=== PATIENT | female | born 1930 | race Caucasian/White ===

== ENCOUNTER 2016-08-09 18:06 | Inpatient (IN) ==
--- NOTE | 2016-08-09 18:16 | Emergency Department Note ---
Disposition Clinical Impression: C. difficile colitis, Frail elderly, Dehydration, Renal insufficiency, Altered mental status, Pleural effusion, Cardiomegaly, CHF (congestive heart failure), Anemia, Hypokalemia, Cerebrovascular disease, Hypotension, History of pneumonia , S/P PICC central line placement, Intra-abdominal fluid collection, Intra- abdominal abscess, Sepsis Disposition: Admitted As Inpatient General Adult HPI - General Chief complaint: ED Fever Stated complaint: FEVER, AMS - History of Present Illness HPI Narrative: 86-year-old female comes in from the custodial, there is concern for infection and altered mental status. The patient had a PICC line placed about a month ago, per reports she had been treated with antibiotics for pneumonia. Subsequently she developed some diarrhea and was recently diagnosed with Clostridium difficile colitis at the custodial. There is no history of trauma or fall. The patient is been taking vancomycin by mouth but is becoming more lethargic and less responsive. She was sent to the ED for further evaluation secondary to declining clinical status. The patient has no acute complaints, she is somewhat confused and does not articulate any concerns. The patient's daughter and power of staff attorney is here with her. There is no history of headache neck stiffness convulsions or rash. Definitively no falls or injuries apart from some potential bruising around the knee secondary to being lifted to the bedside commode. There is no history of bloody stool. No chest pain or shortness of breath are described. The patient is currently not anticoagulated. There is no history of bleeding. No history of weakness on one side of the body facial droop or slurred speech. The patient is usually conversant per the patient's daughter, she states the patient is no longer conversant and appears to be weaker and is concerned about potential sepsis. - Related Data Allergies Allergy/AdvReac Type Severity Reaction Status Date / Time acetaminophen [From Percocet] Allergy See Verified 08/09/16 18:31 Comments adhesive tape Allergy See Verified 08/09/16 18:31 Comments cephalexin [From Keflex] Allergy See Verified 08/09/16 18:31 Comments lisinopril Allergy Redness of Verified 08/09/16 18:31 Skin Oxycodone [From Percocet] Allergy See Verified 08/09/16 18:31 Comments Penicillins Allergy See Verified 08/09/16 18:31 Comments Limitations: ROS unobtainable due to patients medical condition Physical Exam - General Limitations: altered mental status General appearance: alert, other (Elderly female lying supine, she appears to be ill. She does not appear to be in respiratory distress. She is arousable and somewhat alert but not communicative.) - Head Head exam: atraumatic, normocephalic, normal inspection - Eye Eye exam: Present: normal appearance, PERRL, EOMI. Absent: conjunctival injection, miosis, mydriasis, periorbital swelling - ENT ENT exam: normal exam, normal oropharynx, TM's normal bilaterally, normal external ear exam - Neck Neck exam: Present: normal inspection, full ROM, trachea midline. Absent: meningismus - Chest Chest inspection: Present: symmetric chest wall rise. Absent: tenderness - Respiratory Respiratory exam: Present: prolonged expiratory phase. Absent: respiratory distress, wheezes, stridor, accessory muscle use - Cardiovascular Cardiovascular exam: Present: regular rate, normal rhythm, normal heart sounds - Abdominal Exam Abdominal exam: Present: soft, tenderness, normal bowel sounds. Absent: distention, guarding, rebound, rigidity, trauma, pulsatile mass Abdominal tenderness: Present: diffuse, mild - Extremities Exam Extremities exam: Present: normal inspection, full ROM, normal capillary refill. Absent: tenderness, pedal edema, joint swelling, calf tenderness - Expanded Lower Extremity Exam Hip/Pelvis exam: Present: normal inspection, full ROM Upper leg exam: Present: normal inspection, full ROM Knee exam: Present: normal inspection, full ROM Lower leg exam: Present: normal inspection, full ROM Ankle exam: Present: normal inspection, full ROM Foot/toe exam: Present: normal inspection, full ROM Neurovascular/Tendon exam: Present: normal capillary refill. Absent: motor deficit, sensory deficit, tendon deficit, extremity cold to touch, pallor - Back Exam Back exam: Present: normal inspection, full ROM. Absent: tenderness, CVA tenderness (R), CVA tenderness (L), vertebral tenderness - Neurological Exam Neurological exam: Present: alert, CN II-XII intact, other (Good muscle tone in all 4 extremities some cogwheel type rigidity in the upper extremities however. No flaccidity or evidence of unilateral weakness no overt facial droop or cranial nerve defect is appreciated.). Absent: oriented X3 - Skin Skin exam: Present: warm, dry, intact, normal color. Absent: rash, cyanosis, diaphoresis, erythema, pallor, mottled Course Vital Signs Temperature 100.2 F H 08/09/16 18:16 Pulse Rate 62 08/09/16 18:16 Respiratory Rate 20 08/09/16 18:16 Blood Pressure 131/119 08/09/16 18:16 O2 Sat by Pulse Oximetry 97 08/09/16 18:16 Temperature 100.2 F H 08/09/16 18:16 Pulse Rate 59 08/09/16 21:49 Respiratory Rate 18 08/09/16 21:49 Blood Pressure 119/57 08/09/16 21:49 O2 Sat by Pulse Oximetry 97 08/09/16 18:16 Oxygen Delivery Oxygen Delivery Nasal Cannula Medical Decision Making - MDM Narrative Medical decision making narrative: The patient is elderly, with multiple medical problems, she has a diagnosis of Clostridium difficile colitis and is taking vancomycin by mouth. Per report the custodial staff noticed the patient's decreased mentation and thought the patient would best be served sending the patient to the ED for ED evaluation. The patient is unable to give a clear history but the patient's daughter in [place] gives a great deal of pertinent history. The patient appears to be somewhat hypotensive and dehydrated. Her chest x-ray shows cardiomegaly and pleural effusions. She has a PICC line in place. Urinalysis does not show major abnormalities. Blood cultures were sent. Precautionary vancomycin and Levaquin and Flagyl were ordered. The patient's lactic acid is negative. She has been having recurrent diarrhea consistent with her diagnosis of C. difficile. CT head shows no acute disease. EKG paced rhythm. Troponin negative. Market elevation in the patient's CRP noted. Based on the patient's hypotension, altered mental status, apparent dehydration, frail elderly state with multiple comorbidities and apparent failed outpatient therapy on vancomycin by mouth, I thought it would be appropriate to admit the patient to the hospital. A CT of the abdomen and pelvis have been ordered to evaluate further. I discussed the case with the hospitalist on-call who has accepted the patient to their care. CT scan abdomen did come back showing a fluid collection in the abdomen, possible abscess, I discussed the case with Dr. Leyva/surgery who will act as exchange underwriting consultant. - Lab Data Lab results reviewed: Yes I reviewed the patient's lab results. Result diagrams: 08/09/16 18:53 06/24/17 18:53 Lab Results 08/09/16 08/09/16 08/09/16 Range/Units 18:19 18:52 18:53 WBC 4.8 (4.3-11.1) K/mcL RBC 3.55 L (3.82-4.97) M/mcL Hgb 11.1 L (11.5-15.4) g/dL Hct 35.5 (35.3-44.9) % MCV 100.0 (83.0-100.0) fL MCH 31.3 (28.0-33.3) pg MCHC 31.3 L (31.6-35.5) g/dL RDW 13.2 (11.5-14.5) % Plt Count 109 L (140-400) K/mcL MPV 9.9 (9.4-12.4) fL Seg Neutrophils % 58.0 % Band Neutrophils % 14.0 H (0-4) % Lymphocytes % 20.0 % Monocytes % 6.0 % Eosinophils % 2.0 % Neutrophils # 3.5 (1.6-8.9) K/mcL Lymphocytes # 1.0 (0.6-4.6) K/mcL Monocytes # 0.3 (0.0-1.3) K/mcL Eosinophils # 0.1 (0.0-0.6) K/mcL Platelet Estimate Decreased L (Normal) PT (9.4-12.1) Seconds INR APTT (26.0-36.0) Seconds Sodium (136-145) mEq/L Potassium (3.5-4.5) mEq/L Chloride (98-109) mEq/L Carbon Dioxide (19-29) mEq/L BUN (7-20) mg/dL Creatinine (0.57-1.11) mg/dL Est GFR ( Amer) (> 60) Est GFR (Non-Af Amer) (> 60) BUN/Creatinine Ratio (6-26) Glucose (70-99) mg/dL Calculated Osmolality (280-300) Lactic Acid (0.5-2.2) mmol/L Calcium (8.6-10.8) mg/dL Phosphorus (2.3-4.7) mg/dL Magnesium (1.6-2.6) mg/dL Total Bilirubin (0.2-1.2) mg/dL Direct Bilirubin (0.0-0.5) mg/dL Indirect Bilirubin (0.0-1.2) mg/dL AST (5-34) Units/L ALT (0-55) Units/L Alkaline Phosphatase (38-126) Units/L Ammonia (18-72) mcmol/L Troponin I (0-0.03) ng/mL C-Reactive Protein (Less than 5) mg/L B-Natriuretic Peptide 170 H (0-100) pg/mL Serum Total Protein (6.0-8.3) g/dL Albumin (3.5-5.0) g/dL Globulin (2.4-3.5) g/dL Albumin/Globulin Ratio (1.1-2.2) Lipase (8-78) Units/L Urine Color (Yellow) Urine Clarity (Clear) Urine pH (5.0-8.0) pH Units Ur Specific [place] (1.010-1.025) Urine Protein (Neg-Trace) mg/dL Urine Glucose (UA) (Normal) mg/dL Urine Ketones (Negative) mg/dL Urine Blood (Negative) Urine Nitrite (Negative) Urine Bilirubin (Negative) Urine Urobilinogen (Normal) mg/dL Ur Leukocyte Esterase (Negative) Urine Microscopic RBC Urine Microscopic WBC (0-3) per hpf Ur Squamous Epith Cells (None-Few) per lpf Urine Bacteria (None-Few) per hpf Hyaline Casts (None-Few) per lpf Urine Yeast Ur Culture Indicated? (NO) Salicylates (15-30) mg/dL Urine Opiates Screen Negative (Ooxbrw=277) ng/mL Acetaminophen (10-30) mcg/mL Ur Barbiturates Screen Negative (Hsvqze=391) ng/mL Ur Phencyclidine Scrn Negative (Cutoff=25) ng/mL Ur Amphetamines Screen Negative (Zlzkjh=1438) ng/mL U Benzodiazepines Scrn Negative (Ukwqza=944) ng/mL Urine Cocaine Screen Negative (Cutoff= 300) ng/mL U Marijuana (THC) Screen Negative (Cutoff = 50) ng/mL 08/09/16 08/09/16 08/09/16 Range/Units 18:53 18:53 18:53 WBC (4.3-11.1) K/mcL RBC (3.82-4.97) M/mcL Hgb (11.5-15.4) g/dL Hct (35.3-44.9) % MCV (83.0-100.0) fL MCH (28.0-33.3) pg MCHC (31.6-35.5) g/dL RDW (11.5-14.5) % Plt Count (140-400) K/mcL MPV (9.4-12.4) fL Seg Neutrophils % % Band Neutrophils % (0-4) % Lymphocytes % % Monocytes % % Eosinophils % % Neutrophils # (1.6-8.9) K/mcL Lymphocytes # (0.6-4.6) K/mcL Monocytes # (0.0-1.3) K/mcL Eosinophils # (0.0-0.6) K/mcL Platelet Estimate (Normal) PT 12.8 H (9.4-12.1) Seconds INR 1.2 APTT 25.5 L (26.0-36.0) Seconds Sodium 145 (136-145) mEq/L Potassium 3.4 L (3.5-4.5) mEq/L Chloride 111 H (98-109) mEq/L Carbon Dioxide 25 (19-29) mEq/L BUN 40 H (7-20) mg/dL Creatinine 1.15 H (0.57-1.11) mg/dL Est GFR ( Amer) 54 L (> 60) Est GFR (Non-Af Amer) 45 L (> 60) BUN/Creatinine Ratio 35 H (6-26) Glucose 143 H (70-99) mg/dL Calculated Osmolality 312 H (280-300) Lactic Acid 1.1 (0.5-2.2) mmol/L Calcium 9.5 (8.6-10.8) mg/dL Phosphorus 2.7 (2.3-4.7) mg/dL Magnesium 1.8 (1.6-2.6) mg/dL Total Bilirubin 0.6 (0.2-1.2) mg/dL Direct Bilirubin 0.3 (0.0-0.5) mg/dL Indirect Bilirubin 0.3 (0.0-1.2) mg/dL AST 15 (5-34) Units/L ALT 9 (0-55) Units/L Alkaline Phosphatase 92 (38-126) Units/L Ammonia (18-72) mcmol/L Troponin I (0-0.03) ng/mL C-Reactive Protein (Less than 5) mg/L B-Natriuretic Peptide (0-100) pg/mL Serum Total Protein 6.8 (6.0-8.3) g/dL Albumin 3.2 L (3.5-5.0) g/dL Globulin 3.6 H (2.4-3.5) g/dL Albumin/Globulin Ratio 0.9 L (1.1-2.2) Lipase 12 (8-78) Units/L Urine Color (Yellow) Urine Clarity (Clear) Urine pH (5.0-8.0) pH Units Ur Specific [place] (1.010-1.025) Urine Protein (Neg-Trace) mg/dL Urine Glucose (UA) (Normal) mg/dL Urine Ketones (Negative) mg/dL Urine Blood (Negative) Urine Nitrite (Negative) Urine Bilirubin (Negative) Urine Urobilinogen (Normal) mg/dL Ur Leukocyte Esterase (Negative) Urine Microscopic RBC Urine Microscopic WBC (0-3) per hpf Ur Squamous Epith Cells (None-Few) per lpf Urine Bacteria (None-Few) per hpf Hyaline Casts (None-Few) per lpf Urine Yeast Ur Culture Indicated? (NO) Salicylates < 5.0 L (15-30) mg/dL Urine Opiates Screen (Ozhxoc=282) ng/mL Acetaminophen < 1.0 L (10-30) mcg/mL Ur Barbiturates Screen (Gllfhy=825) ng/mL Ur Phencyclidine Scrn (Cutoff=25) ng/mL Ur Amphetamines Screen (Pibfjw=1183) ng/mL U Benzodiazepines Scrn (Vrvhet=429) ng/mL Urine Cocaine Screen (Cutoff= 300) ng/mL U Marijuana (THC) Screen (Cutoff = 50) ng/mL 08/09/16 08/09/16 08/09/16 Range/Units 18:53 18:53 18:53 WBC (4.3-11.1) K/mcL RBC (3.82-4.97) M/mcL Hgb (11.5-15.4) g/dL Hct (35.3-44.9) % MCV (83.0-100.0) fL MCH (28.0-33.3) pg MCHC (31.6-35.5) g/dL RDW (11.5-14.5) % Plt Count (140-400) K/mcL MPV (9.4-12.4) fL Seg Neutrophils % % Band Neutrophils % (0-4) % Lymphocytes % % Monocytes % % Eosinophils % % Neutrophils # (1.6-8.9) K/mcL Lymphocytes # (0.6-4.6) K/mcL Monocytes # (0.0-1.3) K/mcL Eosinophils # (0.0-0.6) K/mcL Platelet Estimate (Normal) PT (9.4-12.1) Seconds INR APTT (26.0-36.0) Seconds Sodium (136-145) mEq/L Potassium (3.5-4.5) mEq/L Chloride (98-109) mEq/L Carbon Dioxide (19-29) mEq/L BUN (7-20) mg/dL Creatinine (0.57-1.11) mg/dL Est GFR ( Amer) (> 60) Est GFR (Non-Af Amer) (> 60) BUN/Creatinine Ratio (6-26) Glucose (70-99) mg/dL Calculated Osmolality (280-300) Lactic Acid (0.5-2.2) mmol/L Calcium (8.6-10.8) mg/dL Phosphorus (2.3-4.7) mg/dL Magnesium (1.6-2.6) mg/dL Total Bilirubin (0.2-1.2) mg/dL Direct Bilirubin (0.0-0.5) mg/dL Indirect Bilirubin (0.0-1.2) mg/dL AST (5-34) Units/L ALT (0-55) Units/L Alkaline Phosphatase (38-126) Units/L Ammonia 38 (18-72) mcmol/L Troponin I 0.02 (0-0.03) ng/mL C-Reactive Protein 147 H (Less than 5) mg/L B-Natriuretic Peptide (0-100) pg/mL Serum Total Protein (6.0-8.3) g/dL Albumin (3.5-5.0) g/dL Globulin (2.4-3.5) g/dL Albumin/Globulin Ratio (1.1-2.2) Lipase (8-78) Units/L Urine Color (Yellow) Urine Clarity (Clear) Urine pH (5.0-8.0) pH Units Ur Specific [place] (1.010-1.025) Urine Protein (Neg-Trace) mg/dL Urine Glucose (UA) (Normal) mg/dL Urine Ketones (Negative) mg/dL Urine Blood (Negative) Urine Nitrite (Negative) Urine Bilirubin (Negative) Urine Urobilinogen (Normal) mg/dL Ur Leukocyte Esterase (Negative) Urine Microscopic RBC Urine Microscopic WBC (0-3) per hpf Ur Squamous Epith Cells (None-Few) per lpf Urine Bacteria (None-Few) per hpf Hyaline Casts (None-Few) per lpf Urine Yeast Ur Culture Indicated? (NO) Salicylates (15-30) mg/dL Urine Opiates Screen (Pdwqer=396) ng/mL Acetaminophen (10-30) mcg/mL Ur Barbiturates Screen (Gaurmo=923) ng/mL Ur Phencyclidine Scrn (Cutoff=25) ng/mL Ur Amphetamines Screen (Ebdmzc=3039) ng/mL U Benzodiazepines Scrn (Smyiko=646) ng/mL Urine Cocaine Screen (Cutoff= 300) ng/mL U Marijuana (THC) Screen (Cutoff = 50) ng/mL 08/09/16 Range/Units 19:35 WBC (4.3-11.1) K/mcL RBC (3.82-4.97) M/mcL Hgb (11.5-15.4) g/dL Hct (35.3-44.9) % MCV (83.0-100.0) fL MCH (28.0-33.3) pg MCHC (31.6-35.5) g/dL RDW (11.5-14.5) % Plt Count (140-400) K/mcL MPV (9.4-12.4) fL Seg Neutrophils % % Band Neutrophils % (0-4) % Lymphocytes % % Monocytes % % Eosinophils % % Neutrophils # (1.6-8.9) K/mcL Lymphocytes # (0.6-4.6) K/mcL Monocytes # (0.0-1.3) K/mcL Eosinophils # (0.0-0.6) K/mcL Platelet Estimate (Normal) PT (9.4-12.1) Seconds INR APTT (26.0-36.0) Seconds Sodium (136-145) mEq/L Potassium (3.5-4.5) mEq/L Chloride (98-109) mEq/L Carbon Dioxide (19-29) mEq/L BUN (7-20) mg/dL Creatinine (0.57-1.11) mg/dL Est GFR ( Amer) (> 60) Est GFR (Non-Af Amer) (> 60) BUN/Creatinine Ratio (6-26) Glucose (70-99) mg/dL Calculated Osmolality (280-300) Lactic Acid (0.5-2.2) mmol/L Calcium (8.6-10.8) mg/dL Phosphorus (2.3-4.7) mg/dL Magnesium (1.6-2.6) mg/dL Total Bilirubin (0.2-1.2) mg/dL Direct Bilirubin (0.0-0.5) mg/dL Indirect Bilirubin (0.0-1.2) mg/dL AST (5-34) Units/L ALT (0-55) Units/L Alkaline Phosphatase (38-126) Units/L Ammonia (18-72) mcmol/L Troponin I (0-0.03) ng/mL C-Reactive Protein (Less than 5) mg/L B-Natriuretic Peptide (0-100) pg/mL Serum Total Protein (6.0-8.3) g/dL Albumin (3.5-5.0) g/dL Globulin (2.4-3.5) g/dL Albumin/Globulin Ratio (1.1-2.2) Lipase (8-78) Units/L Urine Color Yellow (Yellow) Urine Clarity Clear (Clear) Urine pH 5.5 (5.0-8.0) pH Units Ur Specific [place] 1.024 (1.010-1.025) Urine Protein Trace (Neg-Trace) mg/dL Urine Glucose (UA) Normal (Normal) mg/dL Urine Ketones Negative (Negative) mg/dL Urine Blood Negative (Negative) Urine Nitrite Negative (Negative) Urine Bilirubin Small H (Negative) Urine Urobilinogen Normal (Normal) mg/dL Ur Leukocyte Esterase Small H (Negative) Urine Microscopic RBC Test Not Performed Urine Microscopic WBC 0-3 (0-3) per hpf Ur Squamous Epith Cells Many H (None-Few) per lpf Urine Bacteria None Seen (None-Few) per hpf Hyaline Casts None Seen (None-Few) per lpf Urine Yeast Test Not Performed Ur Culture Indicated? YES A (NO) Salicylates (15-30) mg/dL Urine Opiates Screen (Zbwkll=097) ng/mL Acetaminophen (10-30) mcg/mL Ur Barbiturates Screen (Gdkvjw=987) ng/mL Ur Phencyclidine Scrn (Cutoff=25) ng/mL Ur Amphetamines Screen (Toffmc=3703) ng/mL U Benzodiazepines Scrn (Uvrxgs=255) ng/mL Urine Cocaine Screen (Cutoff= 300) ng/mL U Marijuana (THC) Screen (Cutoff = 50) ng/mL - Radiology Data Radiology results reviewed: Yes I reviewed the patient's radiology results.
[2016-08-09] MEDS ORDERED: 0.9 % Sodium Chloride 1,000 ML IVC ONE (18:18)
[2016-08-09 19:05] LABS: Eosinophils # 0.1 K/mcL (0.0-0.6); Hematocrit 35.5 % (35.3-44.9); Hemoglobin 11.1 g/dL (11.5-15.4); Mean Corpuscular HGB Conc 31.3 g/dL (31.6-35.5); Mean Corpuscular Hemoglobin 31.3 pg (28.0-33.3); Mean Platelet Volume 9.9 fL (9.4-12.4); Platelet Count 109 K/mcL (140-400); Red Blood Count 3.55 M/mcL (3.82-4.97); Red Cell Distribution Width 13.2 % (11.5-14.5)
[2016-08-09 19:11] LABS: INR 1.2; Prothrombin Time 12.8 Seconds (9.4-12.1)
[2016-08-09 19:13] LABS: Activated Partial Thrombo Time 25.5 Seconds (26.0-36.0)
[2016-08-09 19:21] LABS: Alanine Aminotransferase 9 Units/L (0-55); Albumin 3.2 g/dL (3.5-5.0); Albumin/Globulin Ratio 0.9 (1.1-2.2); Alkaline Phosphatase 92 Units/L (38-126); Aspartate Amino Transferase 15 Units/L (5-34); BUN/Creatinine Ratio 35 (6-26); Bilirubin,Direct 0.3 mg/dL (0.0-0.5); Bilirubin,Indirect 0.3 mg/dL (0.0-1.2); Bilirubin,Total 0.6 mg/dL (0.2-1.2); Blood Urea Nitrogen 40 mg/dL (7-20); Calcium 9.5 mg/dL (8.6-10.8); Carbon Dioxide 25 mEq/L (19-29); Chloride 111 mEq/L (98-109); Globulin 3.6 g/dL (2.4-3.5); Glucose 143 mg/dL (70-99); Lipase 12 Units/L (8-78); Magnesium 1.8 mg/dL (1.6-2.6); Osmolality,Calculated 312 (280-300); Phosphorous 2.7 mg/dL (2.3-4.7); Potassium 3.4 mEq/L (3.5-4.5); Sodium 145 mEq/L (136-145); Total Protein 6.8 g/dL (6.0-8.3); eGFR For African Americans 54 (> 60); eGFR For Non-African Americans 45 (> 60)
[2016-08-09 19:23] LABS: Acetaminophen < 1.0 mcg/mL (10-30); Salicylate < 5.0 mg/dL (15-30)
[2016-08-09 19:31] LABS: Monocytes # 0.3 K/mcL (0.0-1.3); Neutrophils # 3.5 K/mcL (1.6-8.9)
[2016-08-09 19:32] LABS: Platelet Estimate Decreased (Normal)
[2016-08-09 19:44] LABS: Bilirubin,Urine Small (Negative); Blood,Urine Negative (Negative); Clarity,Urine Clear (Clear); Color,Urine Yellow (Yellow); Glucose,Urine (UA) Normal (Normal); Ketones,Urine Negative (Negative); Leukocyte Esterase,Urine Small (Negative); Nitrite,Urine Negative (Negative); PH,Urine 5.5 pH Units (5.0-8.0); Protein,Urine Trace mg/dL (Neg-Trace); Specific Gravity,Urine 1.024 (1.010-1.025); Urobilinogen,Urine Normal (Normal)
[2016-08-09 19:46] LABS: Bacteria,Urine None Seen per hpf (None-Few); Hyaline Casts,Urine None Seen per lpf (None-Few); Squamous Epithelial Cell,Urine Many per lpf (None-Few); WBC,Urine 0-3 per hpf (0-3)
[2016-08-09 19:50] LABS: Amphetamine Screen,Urine Negative ng/mL (Cutoff=1000); Barbiturate Screen,Urine Negative ng/mL (Cutoff=200); Benzodiazepines Screen,Urine Negative ng/mL (Cutoff=200); Cannabinoid Screen,Urine Negative ng/mL (Cutoff = 50); Cocaine Screen,Urine Negative ng/mL (Cutoff= 300); Opiate Screen,Urine Negative ng/mL (Cutoff=300); Phencyclidine Screen,Urine Negative ng/mL (Cutoff=25)
[2016-08-09] MEDS ORDERED: Vancomycin 1,000 MG in D5% in Water 250 ML IVPB ONE (20:14)
[2016-08-09] MEDS ORDERED: Levofloxacin 750 MG/150 ML 750 MG/150 ML BAG IVPB ONE (20:15)
[2016-08-09] MEDS ORDERED: MetroNIDAZOLE 500 MG/100 ML 500 MG/100 ML BAG IVPB ONE (20:16)
[2016-08-09] MEDS ORDERED: Ondansetron 4 MG/2 ML VIAL IVP PRN (22:36)
[2016-08-09] MEDS ORDERED: Naloxone 0.4 MG/ML INJ IVP PRN (22:36)
[2016-08-09] MEDS ORDERED: Acetaminophen 325 MG TABLET PO PRN (22:36)
--- NOTE | 2016-08-09 22:36 | Internal Med History&Physical ---
Date of Encounter: 08/10/16 Time of Encounter: 22:50 Assessment and Plan (1) Sepsis Current visit: Yes Status: Acute Sepsis with acute encephalopathy possibly secondary to C. difficile colitis and due to intra-abdominal fluid collection possibly abscess Temperature of 100.2 and elevated CRP Other possible source of sepsis could be PICC line Continue IV Levaquin, IV Flagyl and by mouth vancomycin and IV fluids Chest x-ray shows cardiomegaly and bilateral pleural effusion Cultures pending Qualifiers: Sepsis type: sepsis due to unspecified organism Qualified Code(s): A41.9 - Sepsis, unspecified organism (2) Intra-abdominal fluid collection Current visit: Yes Status: Acute New finding of intra-abdominal fluid collection in the left anterior pelvis on CT of the abdomen - unclear etiology, suspicion for abscess Continue IV antibiotics Gen. surgery consult (3) Altered mental status Current visit: Yes Status: Acute Altered mental status likely due to sepsis - associated with generalized weakness and poor physical conditioning Patient also probably has underlying mild dementia Continue IV fluids and IV antibiotics CT of the head - multifocal small vessel ischemic changes but no acute infarct or mass or hemorrhage CXR - cardiomegaly and mild pulmonary congestion and small bilateral pleural effusion otherwise no acute process Qualifiers: Altered mental status type: transient alteration of awareness Qualified Code(s): R40.4 - Transient alteration of awareness (4) C. difficile colitis Current visit: Yes Status: Acute Acute C. difficile colitis with diarrhea Continue by mouth vancomycin and IV Flagyl (5) CHF (congestive heart failure) Current visit: Yes Status: Chronic History of CHF and nonischemic cardiomyopathy, LVEF unknown, not in exacerbation Strict I's and O's and daily weight Echo pending Watch for fluid overload Qualifiers: Congestive heart failure type: unspecified congestive heart failure type Congestive heart failure chronicity: chronic Qualified Code(s): I50.9 - Heart failure, unspecified (6) Frail elderly Current visit: Yes Status: Chronic (7) S/P PICC central line placement Current visit: Yes Status: Acute History of recurrent pneumonia, has been treated with several courses of antibiotics via PICC line PICC line has been in for almost 2-1/2 months - we will probably need to come out, possible source of infection (8) DVT prophylaxis Current visit: Yes Status: Acute Continue heparin subcutaneous Internal Medicine - H&P: HPI Chief complaint: AMS Admitted From: Emergency Dept History of present illness: Ms. Stone is a 86 year old female with past medical history of CHF, nonischemic cardiomyopathy, atrial fibrillation, osteoarthritis, fibromyalgia, hyperlipidemia and hypertension. She [facility] from [facility] for altered mental status. Patient is unable to provide any history and she is nonverbal. She is awake and not in any distress. All history is obtained from patient's daughter. Patient's daughter states the patient has been feeling weak , fatigued and has been more lethargic over the past 2-3 days. Patient had labs done yesterday and patient was positive for C. difficile. Patient has had few episodes of diarrhea. She has been on by mouth vancomycin and Flagyl. Patient's daughter states that patient is usually awake and alert and able to converse, but over the past few days she has been increasingly lethargic. No complaints of falls or injuries at the [facility]. No other specific complaints. Daughter states patient has had chronic episodes of pneumonia. She does have a PICC line in place for the past 2-1/2 months and is received several courses of antibiotics. Daughter is unsure if the PICC line may also be causing infection as it is been in for a long time. Patient was initially hypotensive in the ED and now her blood pressure stabilized after IV fluids. She does have a pacemaker and EKG shows paced rhythm. Urinalysis is fairly within normal limits. Her CRP is markedly elevated. She does not have an elevated white count but does have a fever. CT of the abdomen and pelvis shows some fluid collection in the abdomen possibly abscess, ED physician has consulted and discussed with the surgeon. Patient is being admitted for sepsis. She will be on IV antibiotics and will also be on by mouth vancomycin for C. difficile. Patient's daughter who is the power of estate attorney has been explained about guarded condition, guarded prognosis and plan of care. She understood and agreed. No unanswered questions. Daughter wants patient to be treated for her infection, but no other aggressive measures. CODE STATUS DO NOT RESUSCITATE DO NOT INTUBATE, Comfort Care arrest. Past Med Surg Social Fam HX - Past Medical History Medical history: atrial fibrillation, cardiomyopathy, CHF, dementia, fibromyalgia, hyperlipidemia, hypertension, osteoporosis, other Psychiatric history: depression - Past Surgical History Surgical History: cataract (Bilateral), cholecystectomy, knee replacement (Right -sided), orthopedic, other (Right femur fracture repair), ureteral stent ( Surgery for renal calculi), pacemaker - Social History Smoking Status: Unknown if ever smoked Smokeless Tobacco Status: No Alcohol use: none Drug use: none - Family History Daughter Name: Mer Bowman Age: 61 Living Status: Still Living Hx Family Cardiac Disorders: Yes (HTN, HLD) Hx Family Respiratory Disorders: No Hx Family Cancer: No Hx Family GI Disorders: Yes (GERD) Hx Family Genitourinary Disorders: Yes (Kidney Stones) Hx Family Endocrine Disorder: No Hx Family Musculoskeletal Disorders: No Hx Family Neuromuscular Disorders: No Hx Family Neurologic Disorders: No Hx Family HEENT Disorders: No Hx Family Autoimmune Disorders: No Hx Family Reproductive Disorders: No Hx Family Psychosocial Disorders: No Hx Family Medical Disorders: No Internal Medicine - H&P: Meds Allergies acetaminophen [From Percocet] Allergy (Verified 08/09/16 18:31) See Comments adhesive tape Allergy (Verified 08/09/16 18:31) See Comments cephalexin [From Keflex] Allergy (Verified 08/09/16 18:31) See Comments lisinopril Allergy (Verified 08/09/16 18:31) Redness of Skin Oxycodone [From Percocet] Allergy (Verified 08/09/16 18:31) See Comments Penicillins Allergy (Verified 08/09/16 18:31) See Comments ROS unobtainable: due to mental status All Systems PM: A 10-system review of systems was performed and is negative for pertinent findings except as documented above in the HPI. Review of systems: All history is obtained from patient's daughter - Constitutional Constitutional: as per HPI - Constitutional Vitals: Temp Pulse Resp BP Pulse Ox 100.2 F H 59 20 117/41 97 08/09/16 18:16 08/09/16 21:49 08/09/16 22:28 08/09/16 22:28 08/09/16 18:16 General appearance: Present: A&O X 0, mild distress. Absent: answers questions appropriately Exam: Patient is awake, does not verbalize well, ill appearing and frail, she is awake but not communicative - Head Head exam: Present: atraumatic - Eye Eye exam: Absent: periorbital swelling, periorbital tenderness - ENT ENT exam: Present: mucous membranes moist - Neck Neck exam general surgery: Present: supple - Respiratory Respiratory exam: Present: CTAB. Absent: rales, rhonchi, wheezes, tachypnea - Cardiovascular Cardiovascular exam: Present: irregular rhythm, +S1, +S2, systolic murmur - GI/Abdominal GI/Abdominal exam: Present: soft. Absent: distended, guarding, rebound, tenderness - Extremities Exam Extremities exam: Present: radial pulses palpable and symetrical. Absent: cyanotic, pedal edema, tenderness - Neurological Exam Neurological exam: Absent: oriented X3, no focal deficits, facial droop Additional comments: Patient is awake but is not verbal, she has good muscle tone in all 4 extremities, no facial droop and no obvious cranial nerve deficit. 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 Able to follow simple verbal commands. Internal Med - H&P Results - Labs CBC & Chem 7: 08/09/16 18:53 08/09/16 18:53
[2016-08-09] MEDS ORDERED: D5% in Water 1,000 ML IVC PRN (22:43)
[2016-08-09] MEDS ORDERED: *HR* Dextrose 50 % in Water (Syg) 50 ML SYRINGE IVP PRN (22:43)
[2016-08-09] MEDS ORDERED: Dextrose Gel 15 GM PO PRN ×2 (22:43)
[2016-08-09] MEDS ORDERED: 0.9 % Sodium Chloride 1,000 ML IVC SCH (22:45)
[2016-08-10] MEDS: Vancomycin Oral Soln 250 MG/2.5 ML UDC PO SCH ×4 (02:24→17:51)
[2016-08-10] MEDS: Insulin LISPRO 300 UNITS/3 ML VIAL SQ SCH ×5 (02:25→21:08)
[2016-08-10] MEDS: MetroNIDAZOLE 500 MG/100 ML 500 MG/100 ML BAG IVPB SCH ×4 (03:14→23:53)
[2016-08-10] MEDS: *HR* Heparin 5,000 UNIT/ML VIAL SQ SCH ×2 (03:20→17:51)
[2016-08-10 03:41] LABS: Eosinophils # 0.2 K/mcL (0.0-0.6); Hematocrit 32.5 % (35.3-44.9); Hemoglobin 10.1 g/dL (11.5-15.4); Mean Corpuscular HGB Conc 31.1 g/dL (31.6-35.5); Mean Corpuscular Hemoglobin 31.5 pg (28.0-33.3); Mean Corpuscular Volume 101.2 fL (83.0-100.0); Mean Platelet Volume 10.1 fL (9.4-12.4); Platelet Count 104 K/mcL (140-400); Red Blood Count 3.21 M/mcL (3.82-4.97); Red Cell Distribution Width 13.2 % (11.5-14.5)
[2016-08-10 03:42] LABS: BUN/Creatinine Ratio 36 (6-26); Blood Urea Nitrogen 35 mg/dL (7-20); Calcium 9.1 mg/dL (8.6-10.8); Carbon Dioxide 23 mEq/L (19-29); Chloride 114 mEq/L (98-109); Glucose 126 mg/dL (70-99); Osmolality,Calculated 312 (280-300); Potassium 3.2 mEq/L (3.5-4.5); Sodium 146 mEq/L (136-145); eGFR For African Americans > 60 (> 60); eGFR For Non-African Americans 55 (> 60)
[2016-08-10 04:27] LABS: Basophils # 0.1 K/mcL (0.0-0.2); Lymphocytes # 1.2 K/mcL (0.6-4.6); Monocytes # 0.2 K/mcL (0.0-1.3); Neutrophils # 2.2 K/mcL (1.6-8.9)
[2016-08-10 04:28] LABS: Platelet Estimate Decreased (Normal)
[2016-08-10] MEDS: Famotidine 20 MG/2 ML VIAL IVP SCH ×2 (05:34→17:52)
[2016-08-10] MEDS: Ipratropium/Albuterol Neb 3 ML IH SCH ×5 (07:46→23:36)
[2016-08-10] MEDS ORDERED: Potassium Chloride 40 MEQ, Lidocaine 1% 2 ML in D5% in Water 500 ML IVPB ONE (08:15)
[2016-08-10] MEDS ORDERED: Furosemide 20 MG TABLET PO SCH (09:00)
--- NOTE | 2016-08-10 13:13 | Palliative - Consult Note ---
Date of Encounter: 08/10/16 Time of Encounter: 11:30 - Assessment and Plan (1) Goals of care, counseling/discussion Current Visit: Yes Status: Acute Assessment and plan: Patient is alert and able to provide limited information in the form of yes and no questions. Patients daughter and KASSY Del Angel at bedside. The patient currently resides in an ECF in [facility]. The patient was admitted with Sepsis, and AMS. Upon this consult, the patient is contact precautions for C-Diff. Mer explains that the patient has been on antibiotics in the ECF for Pneumonia. I reviewed the patients current diagnostics and labs with the family and patient. I explained the CT of abd/pelvis and that a surgical consult was pending for evaluation of a possible abdominal abscess. I further explained that this may require medical intervention. Mer agrees to have consult to evaluate the need for more aggressive therapy. She desires to know options so she and her mother may discuss goals of care. Mer agrees that she would not want the patient to have to go to surgery but would support an IR consult if recommended. The patient is bed bound at the ECF since having pneumonia and doesn't ambulate. She has had dysphagia resulting in her meds being crushed. The patient passed her bedside swallow evaluation. Currrent plan is to await surgical opinion of CT results and plan from there. Mer desires reasonable care for her mother but doesn't want aggressive surgical intervention. The patient is a DNRCC - A, DNI. Will await surgical recommendations. (2) Pain Current Visit: Yes Status: Acute Assessment and plan: Patient reports tenderness to palpation to abdomen. Rates pain 2/10 with an ache. Patient reports that she can take Tylenol as needed. Clarified as patient list as allergy. Will leave Tylenol for now. (3) Intra-abdominal fluid collection Current Visit: Yes Status: Acute Assessment and plan: Surgical consult pending (4) C. difficile colitis Current Visit: Yes Status: Acute Assessment and plan: on Vancomycin and Flagyl Palliative-CN HPI - Data of Consult Patient: new to practice Consult date: 08/10/16 Requesting Physician: Ronel Primary Care Provider: Rey Cummins MD - Consult Narrative Palliative Care/Comfort Measures: Palliative care Reason for consult: Goals of Care History of present illness: Ms. Bolender is a 86 year old female with past medical history CHF, nonischemic cardiomyopathy, atrial fibrillation, osteoarthritis, fibromyalgia, hyperlipidemia and hypertension. She currently resides at an ECF in [facility]. Upon this consult, her daughter Mer is at bedside. The patient is alert and oriented but slow to speak long sentences and provide any information. The patient was admitted with Sepsis and Altered mental status. The patient has C-Diff and is on contact precautions. A review of the patient's CAT scan of the abdomen and pelvis revealed a mildly cannulated fluid collection in the left anterior pelvis with adjacent stranding suspicious for abscess formation. The patient is a DNR comfort care arrest, DNI. This palliative care consult is for goals of care discussion for aggressiveness of treatment. CC: Meme Catalan, FRANCK Past Med Surg Social Fam HX - Past Medical History Attestation: Yes The following information was validated with the patient. Source: patient, old records reviewed, obtained from family Medical history: atrial fibrillation, cardiomyopathy, CHF, dementia, fibromyalgia, hyperlipidemia, hypertension, osteoporosis, other Psychiatric history: depression - Past Surgical History Surgical History: cataract (Bilateral), cholecystectomy, knee replacement (Right -sided), orthopedic, other (Right femur fracture repair), ureteral stent ( Surgery for renal calculi), pacemaker - Social History Smoking Status: Unknown if ever smoked Smokeless Tobacco Status: No Alcohol use: none Drug use: none Occupational status: retired Current living situation: [facility] Activity Level: Bed bound Recent Out of Country Travel Within the Last 8 Weeks: No Exposure or Possible Exposure to Illness During Travel: No - Family History Daughter Name: Mer Bowman Age: 61 Living Status: Still Living Hx Family Cardiac Disorders: Yes (HTN, HLD) Hx Family Respiratory Disorders: No Hx Family Cancer: No Hx Family GI Disorders: Yes (GERD) Hx Family Genitourinary Disorders: Yes (Kidney Stones) Hx Family Endocrine Disorder: No Hx Family Musculoskeletal Disorders: No Hx Family Neuromuscular Disorders: No Hx Family Neurologic Disorders: No Hx Family HEENT Disorders: No Hx Family Autoimmune Disorders: No Hx Family Reproductive Disorders: No Hx Family Psychosocial Disorders: No Hx Family Medical Disorders: No Medications and Allergies Acetaminophen [Acetaminophen ER] 650 mg PO Q4HR 08/10/16 [History] Albuterol Neb [Proventil Neb] 2.5 mg Q4HR PRN 08/10/16 [History] Aspirin Enteric Coated [Aspirin EC] 325 mg PO DAILY 08/10/16 [History] Benzonatate [Tessalon] 100 mg PO TID PRN 08/10/16 [History] Cholecalciferol (Vitamin D3) [Vitamin D] 1,000 unit PO DAILY 08/10/16 [History] Furosemide [Lasix] 60 mg PO DAILY 08/10/16 [History] GuaiFENesin/Dextromethorphan [Robitussin/DM] 10 ml PO Q4HR PRN 08/10/16 [History ] Ipratropium/Albuterol Neb [Duoneb] 3 ml IH Q4HR PRN 08/10/16 [History] Loratadine [Allergy Relief] 10 mg PO DAILY 08/10/16 [History] Magnesium Hydroxide [Milk of Magnesia] 1,200 ml PO DAILY PRN 08/10/16 [History] Melatonin [Melatin] 2 mg PO HS 08/10/16 [History] Mirtazapine [Remeron] 15 mg PO HS 08/10/16 [History] Polyvinyl Alcohol [Artificial Tears] 15 ml OP BID 08/10/16 [History] Potassium Chloride [Klor-Con 10] 10 meq PO DAILY 08/10/16 [History] Sennosides/Docusate Sodium [Senna-S Tablet] 2 tab PO DAILY 08/10/16 [History] Sertraline HCl [Zoloft] 25 mg PO DAILY 08/10/16 [History] Silver Sulfadiazine Cream [Silvadene] 1 appl TP BID 08/10/16 [History] Simvastatin [Zocor] 40 mg PO HS 08/10/16 [History] Tramadol HCl [Ultram] 50 mg PO BID PRN 08/10/16 [History] Trazodone HCl [Trazodone HCl] 25 mg PO HS PRN 08/10/16 [History] Allergies acetaminophen [From Percocet] Allergy (Verified 08/09/16 18:31) See Comments adhesive tape Allergy (Verified 08/09/16 18:31) See Comments cephalexin [From Keflex] Allergy (Verified 08/09/16 18:31) See Comments lisinopril Allergy (Verified 08/09/16 18:31) Redness of Skin Oxycodone [From Percocet] Allergy (Verified 06/24/17 18:31) See Comments Penicillins Allergy (Verified 08/09/16 18:31) See Comments ROS unobtainable: due to mental status (patient limited in providing information. Can answer yes or no questions.) Review of systems: fever, abdominal pain, dysphagia - Constitutional Constitutional ROS PAL: decreased appetite (dysphagia), fatigue - EENT Eyes: requires corrective lenses - Respiratory Respiratory: dyspnea on exertion - Gastrointestinal Gastrointestinal: diarrhea - Genitourinary Palliative ROS female: urinary incontinence - Musculoskeletal Musculoskeletal ROS IM: muscle weakness - Psychiatric Psychiatric general PM: confusion Palliative Care-Exam - Constitutional Vitals: Temp Pulse Resp BP Pulse Ox 98.3 F 60 14 109/64 99 08/10/16 10:43 08/10/16 10:43 08/10/16 10:43 08/10/16 10:43 08/10/16 10:43 General appearance: Present: cooperative, obese - Head Head Exam: Present: atraumatic, normal inspection, normocephalic - Eye Eye exam: Present: PERRL Pupils: Present: PERRL - ENT ENT exam: Present: mucous membranes dry - Expanded ENT Exam Teeth exam: Present: edentulous - Neck Neck exam: Present: full ROM - Respiratory Respiratory exam: Present: decreased breath sounds - Expanded Respiratory Exam Location: decreased breath sounds: Left, Right, Lower - Cardiovascular Cardiovascular exam: Present: RRR, +S1, +S2 - Expanded Cardiovascular Exam Peripheral pulses: 1+: Femoral (L) PM, Femoral (R) PM, Posterior Tibialis (L), Posterior Tibialis (R), 2+: Carotid (L) PM, Carotid (R) PM, Radial (L), Radial ( R), Dorsalis Pedis (L) PM, Dorsalis Pedis (R) PM - GI/Abdominal Exam GI/Abdominal exam: Present: distended, normal bowel sounds, soft - Expanded GI/Abdominal Exam GI/Abdominal exam: Present: ascites - Catheter Type: Urethral (Graves) (dark yellow urine) - Expanded Upper Extremities Exam Shoulder exam: Present: full ROM (stiffness) Upper Arm exam: Present: full ROM - Back Exam Back exam: Present: tenderness - Neurological Exam Neurological exam: Present: alert (poor historian, can answer yes or no questions and follow simple commands), altered - Expanded Neurological Exam Coma Scale Eye Opening: Spontaneous Coma Scale Motor Response: Obeys Commands Coma Scale Verbal Response: Oriented Coma Scale Total: 15 - Psychiatric Psychiatric exam: Present: normal affect - Skin Skin exam: Present: pallor, warm Internal Medicine - CN: Reslt - Labs CBC & Chem 7: 08/10/16 03:06 08/10/16 03:06 Labs: Short CBC 08/10/16 Range/Units 03:06 WBC 3.9 L (4.3-11.1) K/mcL Hgb 10.1 L (11.5-15.4) g/dL Hct 32.5 L (35.3-44.9) % Plt Count 104 L (140-400) K/mcL Neutrophils # 2.2 (1.6-8.9) K/mcL BMP 08/10/16 03:06 Sodium 146 H Potassium 3.2 L Chloride 114 H Carbon Dioxide 23 BUN 35 H Creatinine 0.96 Glucose 126 H Calcium 9.1 - ABG Interpretation ABG results: PT/INR, D-dimer PT 12.8 Seconds (9.4-12.1) H 08/09/16 18:53 Consult Discharge Plan - Plan Referrals: Rey Cummins MD [Primary Care Provider] - Palliative Quality Palliative Quality: Screen for Code Status: Yes, Screen for Goals of Care: Yes, Screen for Pain: Yes, If Pain Regimen Started, Initiate Bowel Regimen: Yes, Screen for Nausea/Vomitting: Yes Code Status: 08/10/16 00:22 DNR [Resuscitation Status: Active] [RES] Routine Comment: Resuscitation Status: [id number]
[2016-08-10] MEDS: Cholecalciferol (D-3) 1,000 UNIT TABLET PO SCH (13:29)
[2016-08-10] MEDS: Aspirin Enteric Coated 325 MG Tablet PO SCH (13:30)
--- NOTE | 2016-08-10 13:42 | Internal Med Progress Note ---
Date of Encounter: 08/10/16 Time of Encounter: 13:41 - Subjective Interval history: Patient seen and examined with family present at bedside. As per nursing staff patient has only been communicating with the family but not the medical/nursing staff. Patient participated with speech therapy. During my evaluation, patient remained nonverbal but followed commands. As per daughter, she is doing significantly better, is alert oriented to self and family at this time. At baseline patient is AAO x 3. Pt denies any discomfort at this time. Assessment and Plan (1) Sepsis Current visit: Yes Status: Acute Sepsis with acute encephalopathy-Improved Sepsis resolved possibly secondary to C. difficile colitis and due to intra-abdominal fluid collection possibly abscess Afebrile at this time PICC line removed f/u blood cultures continue IV abx (Levaquin, Flagyl), and PO Vancomycin Pt did well with speech therapy and will start mechanically altered diet will d/c IV fluids once PO feeding is regular Palliative care team consultation appreciated pt has history of CHF, will closely monitor for volume overload. Qualifiers: Sepsis type: sepsis due to unspecified organism Qualified Code(s): A41.9 - Sepsis, unspecified organism (2) Intra-abdominal fluid collection Current visit: Yes Status: Acute New finding of intra-abdominal fluid collection in the left anterior pelvis on CT of the abdomen - unclear etiology, suspicion for abscess Continue IV antibiotics Interventional radiology consultation requested as per Gen surgery's request for abscess drainage in am NPO after midnight (3) Altered mental status Current visit: Yes Status: Acute Altered mental status likely due to sepsis - associated with generalized weakness and poor physical conditioning-mental status improved since admission Continue IV fluids and IV antibiotics CT of the head - multifocal small vessel ischemic changes but no acute infarct or mass or hemorrhage CXR - cardiomegaly and mild pulmonary congestion and small bilateral pleural effusion otherwise no acute process Qualifiers: Altered mental status type: transient alteration of awareness Qualified Code(s): R40.4 - Transient alteration of awareness (4) C. difficile colitis Current visit: Yes Status: Acute Acute C. difficile colitis with diarrhea Continue by mouth vancomycin and IV Flagyl (5) CHF (congestive heart failure) Current visit: Yes Status: Chronic History of CHF and nonischemic cardiomyopathy, LVEF unknown, not in exacerbation Strict I's and O's and daily weight Echo pending Watch for fluid overload Qualifiers: Congestive heart failure type: unspecified congestive heart failure type Congestive heart failure chronicity: chronic Qualified Code(s): I50.9 - Heart failure, unspecified (6) Frail elderly Current visit: Yes Status: Chronic (7) S/P PICC central line placement Current visit: Yes Status: Acute PICC line removed (8) DVT prophylaxis Current visit: Yes Status: Acute Continue heparin subcutaneous (9) Electrolyte abnormality Hypokalemia K supplemented continue to monitor electrolytes and replace as needed - Constitutional Vitals: Temp Pulse Resp BP Pulse Ox 98.3 F 60 14 109/64 99 08/10/16 10:43 08/10/16 10:43 08/10/16 10:43 08/10/16 10:43 08/10/16 10:43 General appearance: Present: A&O X 0, no acute distress, obese - Head Head exam: Present: atraumatic, normocephalic - Eye Eye exam: Present: normal appearance, conjuntiva pink, sclera anicteric - Respiratory Respiratory exam: Absent: respiratory distress, wheezes - Cardiovascular Cardiovascular exam: Present: RRR, +S1, +S2. Absent: diastolic murmur, gallop, rubs, systolic murmur - GI/Abdominal GI/Abdominal exam: Present: normal bowel sounds, soft. Absent: tenderness - Extremities Exam Extremities exam: Present: warm, radial pulses palpable and symetrical. Absent : calf tenderness, pedal edema Internal Medicine: Result - Labs CBC & Chem 7: 08/10/16 03:06 08/10/16 03:06 Labs: Short CBC 08/10/16 Range/Units 03:06 WBC 3.9 L (4.3-11.1) K/mcL Hgb 10.1 L (11.5-15.4) g/dL Hct 32.5 L (35.3-44.9) % Plt Count 104 L (140-400) K/mcL Neutrophils # 2.2 (1.6-8.9) K/mcL BMP 08/10/16 03:06 Sodium 146 H Potassium 3.2 L Chloride 114 H Carbon Dioxide 23 BUN 35 H Creatinine 0.96 Glucose 126 H Calcium 9.1 - ABG Interpretation ABG results: PT/INR, D-dimer PT 12.8 Seconds (9.4-12.1) H 08/09/16 18:53 Consult Discharge Plan - Plan Referrals: Juschka,Dirk N, MD [Primary Care Provider] -
--- NOTE | 2016-08-10 14:39 | Electrocardiograph Report ---
[place] [id number] Test Date: 2016-08-09 Pat Name: Marilu Stone Department: 103 Room: 3B22 Gender: F Mulcher Operator: : [id number] Requested By: Tommy Coe Order Number: [id number] Reading MD: Darleen Ramon Measurements Intervals [place] Rate: 60 P: UT: 0 QRS: 183 QRSD: 173 T: 38 QT: 463 QTc: 463 Interpretive Statements ELECTRONIC VENTRICULAR PACEMAKER BASELINE ARTIFACT Electronically Signed On 08-10-2016 14:38:47 EDT by Darleen Ramon
--- NOTE | 2016-08-10 17:17 | General Surgery Consult Note ---
Date of Encounter: 08/10/16 Time of Encounter: 17:00 Assessment and Plan (1) Altered mental status Current Visit: Yes Status: Acute mental status seems to wax and wane but is always more alert for family Qualifiers: Altered mental status type: transient alteration of awareness Qualified Code(s): R40.4 - Transient alteration of awareness (2) Intra-abdominal fluid collection Current Visit: Yes Status: Acute discussed with daughter that she isnt really wanting her mother to undergo a surgery but is OK with IR draining the area. Consult and order for IR drainage of fluid collection and cultures ordered. 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 She is seen with her daughter present who answers all the questions essentially. The patient fell on Apr 09 of this year while in a different fdc and was on coumadin and had ecchymosis of the abdominal wall. She was admitted to [facility] for what sounds like at least a week, she had an MERCEDES at the time as well. She was sent to a different fdc and recently was treated for pneumonia with two rounds of antibiotics via picc line. This past her daughter, who visits her daily, noticed a change in mentation and alertness. Thursday she states the patient was all but almost unresponsive verbally. The patient has complained of abdominal pain beginning a day or two ago but no specific complaints or statements. She has had some diarrhea the last day or so per the daughter. She was brought to the ED yesterday and CT abd/pelvis was done showing nonspecific thickening of the rectum and a left intra-abdominal loculated fluid collection 6.2 cm greatest size, concerning for abscess. WBC 4.8 and 12 bands. Past Med Surg Social Fam HX - Past Medical History Source: old records reviewed, obtained from family Medical history: atrial fibrillation, cardiomyopathy, CHF, dementia, fibromyalgia, hyperlipidemia, hypertension, osteoporosis, other Psychiatric history: depression - Past Surgical History Surgical History: cataract (Bilateral), cholecystectomy, knee replacement (Right -sided), orthopedic, other (Right femur fracture repair), ureteral stent ( Surgery for renal calculi), pacemaker - Social History Smoking Status: Unknown if ever smoked Smokeless Tobacco Status: No Alcohol use: none Drug use: none - Family History Daughter Name: Mer Bowman Age: 61 Living Status: Still Living Hx Family Cardiac Disorders: Yes (HTN, HLD) Hx Family Respiratory Disorders: No Hx Family Cancer: No Hx Family GI Disorders: Yes (GERD) Hx Family Genitourinary Disorders: Yes (Kidney Stones) Hx Family Endocrine Disorder: No Hx Family Musculoskeletal Disorders: No Hx Family Neuromuscular Disorders: No Hx Family Neurologic Disorders: No Hx Family HEENT Disorders: No Hx Family Autoimmune Disorders: No Hx Family Reproductive Disorders: No Hx Family Psychosocial Disorders: No Hx Family Medical Disorders: No Medications and Allergies Acetaminophen [Acetaminophen ER] 650 mg PO Q4HR 08/10/16 [History] Albuterol Neb [Proventil Neb] 2.5 mg Q4HR PRN 08/10/16 [History] Aspirin Enteric Coated [Aspirin EC] 325 mg PO DAILY 08/10/16 [History] Benzonatate [Tessalon] 100 mg PO TID PRN 08/10/16 [History] Cholecalciferol (Vitamin D3) [Vitamin D] 1,000 unit PO DAILY 08/10/16 [History] Furosemide [Lasix] 60 mg PO DAILY 08/10/16 [History] GuaiFENesin/Dextromethorphan [Robitussin/DM] 10 ml PO Q4HR PRN 08/10/16 [History ] Ipratropium/Albuterol Neb [Duoneb] 3 ml IH Q4HR PRN 08/10/16 [History] Loratadine [Allergy Relief] 10 mg PO DAILY 08/10/16 [History] Magnesium Hydroxide [Milk of Magnesia] 1,200 ml PO DAILY PRN 08/10/16 [History] Melatonin [Melatin] 2 mg PO HS 08/10/16 [History] Mirtazapine [Remeron] 15 mg PO HS 08/10/16 [History] Polyvinyl Alcohol [Artificial Tears] 15 ml OP BID 08/10/16 [History] Potassium Chloride [Klor-Con 10] 10 meq PO DAILY 08/10/16 [History] Sennosides/Docusate Sodium [Senna-S Tablet] 2 tab PO DAILY 08/10/16 [History] Sertraline HCl [Zoloft] 25 mg PO DAILY 08/10/16 [History] Silver Sulfadiazine Cream [Silvadene] 1 appl TP BID 08/10/16 [History] Simvastatin [Zocor] 40 mg PO HS 08/10/16 [History] Tramadol HCl [Ultram] 50 mg PO BID PRN 08/10/16 [History] Trazodone HCl [Trazodone HCl] 25 mg PO HS PRN 08/10/16 [History] Allergies acetaminophen [From Percocet] Allergy (Verified 08/09/16 18:31) See Comments adhesive tape Allergy (Verified 08/09/16 18:31) See Comments cephalexin [From Keflex] Allergy (Verified 08/09/16 18:31) See Comments lisinopril Allergy (Verified 08/09/16 18:31) Redness of Skin Oxycodone [From Percocet] Allergy (Verified 08/09/16 18:31) See Comments Penicillins Allergy (Verified 08/09/16 18:31) See Comments Review of Systems All systems PM: reviewed and no additional remarkable complaints except as stated All systems PM: A 10-system review of systems was performed and is negative for pertinent findings except as documented above in the HPI. General Surgery Exam Initial Vital Signs Temp Pulse Resp BP Pulse Ox 100.2 F H 62 20 131/119 97 08/09/16 18:16 08/09/16 18:16 08/09/16 18:16 08/09/16 18:16 08/09/16 18:16 - General physical appearance well developed, well nourished, no distress, no pain - Eyes PERRL, normal ocular movement - ENT normal mucosa, normocephalic - Neck trachea midline - Respiratory normal expansion, clear to auscultation - Cardiovascular Cardiovascular exam: Present: RRR - Abdomen Abdomen general surgery: Present: bowel sounds present, soft, non tender. Absent: distended, guarding, rebound - Integumentary Integumentary general surgery: Present: warm and dry, no abnormal pigmentation - Neurologic Present: CN 2-12 grossly intact - Musculoskeletal Present: normal posture - Psychiatric Psychiatric general surgery: Present: oriented to person Exam Initial Vital Signs Temp Pulse Resp BP Pulse Ox 100.2 F H 62 20 131/119 97 08/09/16 18:16 08/09/16 18:16 08/09/16 18:16 08/09/16 18:16 08/09/16 18:16 Results - Labs 08/10/16 03:06 08/10/16 03:06 Abnormal lab results WBC 3.9 K/mcL (4.3-11.1) L 08/10/16 03:06 RBC 3.21 M/mcL (3.82-4.97) L 08/10/16 03:06 Hgb 10.1 g/dL (11.5-15.4) L 08/10/16 03:06 Hct 32.5 % (35.3-44.9) L 08/10/16 03:06 MCV 101.2 fL (83.0-100.0) H 08/10/16 03:06 MCHC 31.1 g/dL (31.6-35.5) L 08/10/16 03:06 Plt Count 104 K/mcL (140-400) L 08/10/16 03:06 Band Neutrophils % 16.0 % (0-4) H 08/10/16 03:06 Platelet Estimate Decreased (Normal) L 08/10/16 03:06 PT 12.8 Seconds (9.4-12.1) H 08/09/16 18:53 APTT 25.5 Seconds (26.0-36.0) L 08/09/16 18:53 Sodium 146 mEq/L (136-145) H 08/10/16 03:06 Potassium 3.2 mEq/L (3.5-4.5) L 08/10/16 03:06 Chloride 114 mEq/L (98-109) H 08/10/16 03:06 BUN 35 mg/dL (7-20) H 08/10/16 03:06 Est GFR (Non-Af Amer) 55 (> 60) L 08/10/16 03:06 BUN/Creatinine Ratio 36 (6-26) H 08/10/16 03:06 Glucose 126 mg/dL (70-99) H 08/10/16 03:06 POC Glucose 128 (58-89) H 08/10/16 02:19 Calculated Osmolality 312 (280-300) H 08/10/16 03:06 C-Reactive Protein 147 mg/L (Less than 5) H 08/09/16 18:53 B-Natriuretic Peptide 170 pg/mL (0-100) H 08/09/16 18:52 Albumin 3.2 g/dL (3.5-5.0) L 08/09/16 18:53 Globulin 3.6 g/dL (2.4-3.5) H 08/09/16 18:53 Albumin/Globulin Ratio 0.9 (1.1-2.2) L 08/09/16 18:53 Urine Bilirubin Small (Negative) H 08/09/16 19:35 Ur Leukocyte Esterase Small (Negative) H 08/09/16 19:35 Ur Squamous Epith Cells Many per lpf (None-Few) H 08/09/16 19:35 Ur Culture Indicated? YES (NO) A 08/09/16 19:35 Salicylates < 5.0 mg/dL (15-30) L 08/09/16 18:53 Acetaminophen < 1.0 mcg/mL (10-30) L 08/09/16 18:53 Diabetes panel 08/10/16 Range/Units 03:06 Sodium 146 H (136-145) mEq/L Potassium 3.2 L (3.5-4.5) mEq/L Chloride 114 H (98-109) mEq/L Carbon Dioxide 23 (19-29) mEq/L BUN 35 H (7-20) mg/dL Creatinine 0.96 (0.57-1.11) mg/dL Glucose 126 H (70-99) mg/dL Calcium 9.1 (8.6-10.8) mg/dL Calcium panel 08/10/16 Range/Units 03:06 Calcium 9.1 (8.6-10.8) mg/dL Pituitary panel 08/10/16 Range/Units 03:06 Sodium 146 H (136-145) mEq/L Potassium 3.2 L (3.5-4.5) mEq/L Chloride 114 H (98-109) mEq/L Carbon Dioxide 23 (19-29) mEq/L BUN 35 H (7-20) mg/dL Creatinine 0.96 (0.57-1.11) mg/dL Glucose 126 H (70-99) mg/dL Calcium 9.1 (8.6-10.8) mg/dL Adrenal panel 08/10/16 Range/Units 03:06 Sodium 146 H (136-145) mEq/L Potassium 3.2 L (3.5-4.5) mEq/L Chloride 114 H (98-109) mEq/L Carbon Dioxide 23 (19-29) mEq/L BUN 35 H (7-20) mg/dL Creatinine 0.96 (0.57-1.11) mg/dL Glucose 126 H (70-99) mg/dL Calcium 9.1 (8.6-10.8) mg/dL All other labs normal. - Imaging CT scan - abdomen: report reviewed, image reviewed CT scan - pelvis: report reviewed, image reviewed Consult Discharge Plan - Plan Referrals: Rey Cummins MD [Primary Care Provider] -
[2016-08-10 18:17] LABS: Enterococcus by PCR Not Detected (Not Detect); blaKPC Carbapenem-Resist Gene Not Detected (Not Detect); mecA Methicillin-Resist Gene Not Detected (Not Detect); vanA/B Vancomycin-Resist Genes Not Detected (Not Detect)
[2016-08-10 18:18] LABS: Acinetobacter baumannii by PCR Not Detected (Not Detect); Candida albicans by PCR Not Detected (Not Detect); Candida glabrata by PCR Not Detected (Not Detect); Candida krusei by PCR Not Detected (Not Detect); Candida parapsilosis by PCR Not Detected (Not Detect); Candida tropicalis by PCR Not Detected (Not Detect); Escherichia coli by PCR Not Detected (Not Detect); Klebsiella oxytoca by PCR Not Detected (Not Detect); Klebsiella pneumoniae by PCR Not Detected (Not Detect); Pseudomonas aeruginosa by PCR Not Detected (Not Detect); Serratia marcescens by PCR Not Detected (Not Detect); Staphylococcus aureus by PCR Not Detected (Not Detect); Streptococcus agalactiae(B)PCR Not Detected (Not Detect); Streptococcus by PCR Not Detected (Not Detect); Streptococcus pneumoniae PCR Not Detected (Not Detect); Streptococcus pyogenes (A) PCR Not Detected (Not Detect)
[2016-08-10] MEDS ORDERED: *HR* LORazepam 2 MG/ML VIAL IVP ONE (21:51)
[2016-08-10] MEDS: Mirtazapine 15 MG TABLET PO SCH (22:45)
[2016-08-11] MEDS: Vancomycin Oral Soln 250 MG/2.5 ML UDC PO SCH ×5 (00:27→21:48)
[2016-08-11] MEDS: Vancomycin 1,250 MG in D5% in Water 250 ML IVPB SCH ×2 (02:17→22:58)
[2016-08-11] MEDS: Ipratropium/Albuterol Neb 3 ML IH SCH ×6 (04:06→23:19)
[2016-08-11 04:38] LABS: Basophils % 0.2 %; Mean Corpuscular Volume 100.7 fL (83.0-100.0)
[2016-08-11 04:39] LABS: Eosinophils # 0.1 K/mcL (0.0-0.6); Eosinophils % 2.4 %; Hematocrit 30.5 % (35.3-44.9); Hemoglobin 9.5 g/dL (11.5-15.4); Immature Granulocytes % 0.7 % (0-4); Immature Platelets 1.9 % (1.1-6.1); Lymphocytes # 0.9 K/mcL (0.6-4.6); Lymphocytes % 22.2 %; Mean Corpuscular HGB Conc 31.1 g/dL (31.6-35.5); Mean Corpuscular Hemoglobin 31.4 pg (28.0-33.3); Mean Platelet Volume 9.8 fL (9.4-12.4); Monocytes # 0.4 K/mcL (0.0-1.3); Monocytes % 9.9 %; Neutrophils # 2.7 K/mcL (1.6-8.9); Platelet Count 102 K/mcL (140-400); Red Blood Count 3.03 M/mcL (3.82-4.97); Red Cell Distribution Width 13.1 % (11.5-14.5); Segmented Neutrophils % 64.6 %
[2016-08-11 04:47] LABS: BUN/Creatinine Ratio 28 (6-26); Blood Urea Nitrogen 25 mg/dL (7-20); Calcium 8.7 mg/dL (8.6-10.8); Carbon Dioxide 23 mEq/L (19-29); Chloride 116 mEq/L (98-109); Glucose 123 mg/dL (70-99); Magnesium 1.5 mg/dL (1.6-2.6); Osmolality,Calculated 308 (280-300); Phosphorous 2.7 mg/dL (2.3-4.7); Potassium 3.1 mEq/L (3.5-4.5); Sodium 146 mEq/L (136-145); eGFR For African Americans > 60 (> 60); eGFR For Non-African Americans > 60 (> 60)
[2016-08-11 05:04] LABS: Platelet Estimate Slight Decrease (Normal)
[2016-08-11] MEDS: *HR* Heparin 5,000 UNIT/ML VIAL SQ SCH ×2 (05:09→17:43)
[2016-08-11] MEDS: Famotidine 20 MG/2 ML VIAL IVP SCH (06:27)
[2016-08-11] MEDS: MetroNIDAZOLE 500 MG/100 ML 500 MG/100 ML BAG IVPB SCH ×4 (06:28→21:47)
[2016-08-11] MEDS ORDERED: Magnesium Sulfate 2 GM in D5% in Water 100 ML IVPB ONE (08:09)
[2016-08-11] MEDS ORDERED: Potassium Chloride 40 MEQ, Lidocaine 1% 2 ML in D5% in Water 500 ML IVPB ONE (08:09)
[2016-08-11] MEDS: Insulin LISPRO 300 UNITS/3 ML VIAL SQ SCH ×5 (08:40→22:13)
[2016-08-11] MEDS: Cholecalciferol (D-3) 1,000 UNIT TABLET PO SCH (09:26)
[2016-08-11] MEDS: Furosemide 20 MG TABLET PO SCH (09:26)
[2016-08-11] MEDS: Aspirin Enteric Coated 325 MG Tablet PO SCH (09:26)
--- NOTE | 2016-08-11 09:40 | Palliative Progress Note ---
Date of Encounter: 08/11/16 Time of Encounter: 09:15 - Assessment and plan (1) C. difficile colitis Current Visit: Yes Status: Acute Assessment and plan: Under treatment currently and per hospitalist team. (2) Intra-abdominal fluid collection Current Visit: Yes Status: Acute Assessment and plan: IR to see regarding drainage. (3) Intra-abdominal abscess Current Visit: Yes Status: Acute Assessment and plan: IR to see regarding drainage. Antibiotics per hospitalist team, surgery is also following (4) Goals of care, counseling/discussion Current Visit: Yes Status: Acute Assessment and plan: Patient is established DNR CCA DNI. Discussion with patient and daughter this morning confirms that. The overall plan is to return to [facility] for rehabilitation after hospitalization. The goal is to try to return home, however the patient must be able to ambulate to some degree to be safe at home. Discussion with daughter regarding the repeated infections. The patient is clearly not a hospice candidate at this time after discussion with she and her daughter. They are aware where it fits into the plan should she continue to decline. (5) Pain Current Visit: Yes Status: Acute Assessment and plan: Under control at this time continue current meds. - Time Spent With Patient Total time spent is greater than 50% in coordination of care (as documented) at patient's floor/unit and/or counseling patient: - Subjective Interval history: The patient states that overall she just does not feel well. But cannot pinpoint any specific thing wrong. This her breathing is okay at this time, she is just achy all over. - Constitutional Vitals: Abnormal lab results WBC 4.2 K/mcL (4.3-11.1) L 08/11/16 04:26 RBC 3.03 M/mcL (3.82-4.97) L 08/11/16 04:26 Hgb 9.5 g/dL (11.5-15.4) L 08/11/16 04:26 Hct 30.5 % (35.3-44.9) L 08/11/16 04:26 MCV 100.7 fL (83.0-100.0) H 08/11/16 04:26 MCHC 31.1 g/dL (31.6-35.5) L 08/11/16 04:26 Plt Count 102 K/mcL (140-400) L 08/11/16 04:26 Band Neutrophils % 16.0 % (0-4) H 08/10/16 03:06 Platelet Estimate Slight Decrease (Normal) L 08/11/16 04:26 PT 12.8 Seconds (9.4-12.1) H 08/09/16 18:53 APTT 25.5 Seconds (26.0-36.0) L 08/09/16 18:53 Sodium 146 mEq/L (136-145) H 08/11/16 04:26 Potassium 3.1 mEq/L (3.5-4.5) L 08/11/16 04:26 Chloride 116 mEq/L (98-109) H 08/11/16 04:26 BUN 25 mg/dL (7-20) H D 08/11/16 04:26 BUN/Creatinine Ratio 28 (6-26) H 08/11/16 04:26 Glucose 123 mg/dL (70-99) H 08/11/16 04:26 POC Glucose 110 (58-89) H 08/10/16 20:25 Calculated Osmolality 308 (280-300) H 08/11/16 04:26 Magnesium 1.5 mg/dL (1.6-2.6) L 08/11/16 04:26 C-Reactive Protein 147 mg/L (Less than 5) H 08/09/16 18:53 B-Natriuretic Peptide 170 pg/mL (0-100) H 08/09/16 18:52 Albumin 3.2 g/dL (3.5-5.0) L 08/09/16 18:53 Globulin 3.6 g/dL (2.4-3.5) H 08/09/16 18:53 Albumin/Globulin Ratio 0.9 (1.1-2.2) L 08/09/16 18:53 Urine Bilirubin Small (Negative) H 08/09/16 19:35 Ur Leukocyte Esterase Small (Negative) H 08/09/16 19:35 Ur Squamous Epith Cells Many per lpf (None-Few) H 08/09/16 19:35 Ur Culture Indicated? YES (NO) A 08/09/16 19:35 Vancomycin Trough 7.5 mcg/mL (10-20) L 08/10/16 23:13 Salicylates < 5.0 mg/dL (15-30) L 08/09/16 18:53 Acetaminophen < 1.0 mcg/mL (10-30) L 08/09/16 18:53 Staphylococcus sp PCR DETECTED (Not Detect) A 08/09/16 18:53 General appearance: Present: no acute distress - Head Head exam: Present: atraumatic, normal inspection - Eye Eye exam: Present: normal appearance - ENT ENT exam: Present: mucous membranes moist - Respiratory Respiratory exam: Present: decreased breath sounds - Cardiovascular Cardiovascular exam: Present: RRR - GI/Abdominal GI/Abdominal exam: Present: distended, normal bowel sounds, soft, tenderness ( Mild tenderness) - Extremities Exam Extremities exam: Present: normal inspection. Absent: pedal edema, tenderness - Neurological Exam Neurological exam: Present: alert - Psychiatric Psychiatric exam: Absent: agitated, anxious - Skin Skin exam: Present: dry, warm Palliative Quality Palliative Quality: Screen for Code Status: Yes, Screen for Goals of Care: Yes, Screen for Pain: Yes, If Pain Regimen Started, Initiate Bowel Regimen: Yes, Screen for Nausea/Vomitting: Yes Code Status: 08/10/16 00:22 DNR [Resuscitation Status: Active] [RES] Routine Comment: Resuscitation Status: [id number] - Labs CBC & Chem 7: 08/11/16 04:26 08/11/16 04:26 Labs: Laboratory Results - last 24 hr 08/10/16 08/10/16 08/10/16 06:30 10:34 15:37 WBC RBC Hgb Hct MCV MCH MCHC RDW Plt Count MPV Immature Gran % Seg Neutrophils % Lymphocytes % Monocytes % Eosinophils % Basophils % Neutrophils # Lymphocytes # Monocytes # Eosinophils # Basophils # Platelet Estimate Immature Plt Fraction Sodium Potassium Chloride Carbon Dioxide BUN Creatinine Est GFR ( Amer) Est GFR (Non-Af Amer) BUN/Creatinine Ratio Glucose POC Glucose 98 H 99 H 124 H Calculated Osmolality Calcium Phosphorus Magnesium Vancomycin Trough 08/10/16 08/10/16 08/11/16 20:25 23:13 04:26 WBC 4.2 L RBC 3.03 L Hgb 9.5 L Hct 30.5 L MCV 100.7 H MCH 31.4 MCHC 31.1 L RDW 13.1 Plt Count 102 L MPV 9.8 Immature Gran % 0.7 Seg Neutrophils % 64.6 Lymphocytes % 22.2 Monocytes % 9.9 Eosinophils % 2.4 Basophils % 0.2 Neutrophils # 2.7 Lymphocytes # 0.9 Monocytes # 0.4 Eosinophils # 0.1 Basophils # 0.0 Platelet Estimate Slight Decrease L Immature Plt Fraction 1.9 Sodium Potassium Chloride Carbon Dioxide BUN Creatinine Est GFR ( Amer) Est GFR (Non-Af Amer) BUN/Creatinine Ratio Glucose POC Glucose 110 H Calculated Osmolality Calcium Phosphorus Magnesium Vancomycin Trough 7.5 L 08/11/16 04:26 WBC RBC Hgb Hct MCV MCH MCHC RDW Plt Count MPV Immature Gran % Seg Neutrophils % Lymphocytes % Monocytes % Eosinophils % Basophils % Neutrophils # Lymphocytes # Monocytes # Eosinophils # Basophils # Platelet Estimate Immature Plt Fraction Sodium 146 H Potassium 3.1 L Chloride 116 H Carbon Dioxide 23 BUN 25 H D Creatinine 0.88 Est GFR ( Amer) > 60 Est GFR (Non-Af Amer) > 60 BUN/Creatinine Ratio 28 H Glucose 123 H POC Glucose Calculated Osmolality 308 H Calcium 8.7 Phosphorus 2.7 Magnesium 1.5 L Vancomycin Trough - ABG Interpretation ABG results: PT/INR, D-dimer PT 12.8 Seconds (9.4-12.1) H 08/09/16 18:53 Consult Discharge Plan - Plan Referrals: Rey Cummins MD [Primary Care Provider] -
--- NOTE | 2016-08-11 14:57 | IR Procedure Note ---
Date of procedure: 08/11/16 Consent Obtained: Written consent Timeout: Correct patient and procedure verified, Correct site verified, Time out performed, Skin prep completed Local anesthetic: Lidocaine 1% Indications: LLQ fluid collection suspicious for abscess Procedure Performed: LLQ drain placement Site/Technique: LLQ access, and placement of 12fr drain Results/Findings: Thick bloody brownish fluid obtained. Collection too small for larger drain Estimated blood loss (cc): 1 Complications: None; Tolerated procedure well Post Procedure Treatment Plan: Sample sent to lab. Monitoring in pts room.
--- NOTE | 2016-08-11 15:38 | Internal Med Progress Note ---
Date of Encounter: 08/11/16 Time of Encounter: 15:34 - Subjective Interval history: Patient seen and examined with family present at bedside. Patient is s/p drain placement in LLQ. Mental status back to baseline. Patient denies any discomfort at this time and reports of being hungry Assessment and Plan (1) Sepsis Current visit: Yes Status: Acute Sepsis with acute encephalopathy-resolved Sepsis resolved possibly secondary to C. difficile colitis and due to intra-abdominal fluid collection possibly abscess-s/p drain placement by interventional radiology () Afebrile at this time PICC line removed f/u repeat blood cultures preliminary blood cultures show gram positive Cocci. started IV vancomyicn in addition to Levaquin, PO Vancomycin, and IV flagyl continue mechanically altered diet Palliative care team consultation appreciated Qualifiers: Sepsis type: sepsis due to unspecified organism Qualified Code(s): A41.9 - Sepsis, unspecified organism (2) Intra-abdominal fluid collection Current visit: Yes Status: Acute New finding of intra-abdominal fluid collection in the left anterior pelvis on CT of the abdomen - unclear etiology, suspicion for abscess Continue IV antibiotics Interventional radiology consultation appreciated, s/p abscess drainage and drain placement. will follow up cultures (3) Altered mental status Current visit: Yes Status: Acute Mental status improved and back to baseline continue IV abx CT of the head - multifocal small vessel ischemic changes but no acute infarct or mass or hemorrhage CXR - cardiomegaly and mild pulmonary congestion and small bilateral pleural effusion otherwise no acute process Qualifiers: Altered mental status type: transient alteration of awareness Qualified Code(s): R40.4 - Transient alteration of awareness (4) C. difficile colitis Current visit: Yes Status: Acute Acute C. 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 (7) S/P PICC central line placement Current visit: Yes Status: Acute PICC line removed (8) DVT prophylaxis Current visit: Yes Status: Acute Continue heparin subcutaneous (9) Electrolyte abnormality Hypokalemia, Hypomagnesemia K and Mg supplemented continue to monitor electrolytes and replace as needed - Constitutional Vitals: Temp Pulse Resp BP Pulse Ox 97.8 F 61 16 94/47 89 08/11/16 11:54 08/11/16 14:12 08/11/16 14:12 08/11/16 14:12 08/11/16 14:12 General appearance: Present: cooperative, A&O X 2 (at baseline, not aware of date), pleasant, no acute distress, obese, answers questions appropriately - Head Head exam: Present: atraumatic, normocephalic - Eye Eye exam: Present: conjuntiva pink, sclera anicteric - Respiratory Respiratory exam: Absent: respiratory distress, wheezes - Cardiovascular Cardiovascular exam: Present: RRR, +S1, +S2. Absent: diastolic murmur, gallop, rubs, systolic murmur - GI/Abdominal GI/Abdominal exam: Present: normal bowel sounds, soft. Absent: tenderness (LLQ JORI drain in place) - Extremities Exam Extremities exam: Present: warm, radial pulses palpable and symetrical. Absent : calf tenderness - Neurological Exam Neurological exam: Present: alert - Psychiatric Psychiatric exam: Present: normal affect, normal mood Internal Medicine: Result - Labs CBC & Chem 7: 08/11/16 04:26 08/11/16 04:26 Labs: Short CBC 08/11/16 Range/Units 04:26 WBC 4.2 L (4.3-11.1) K/mcL Hgb 9.5 L (11.5-15.4) g/dL Hct 30.5 L (35.3-44.9) % Plt Count 102 L (140-400) K/mcL Neutrophils # 2.7 (1.6-8.9) K/mcL BMP 08/11/16 04:26 Sodium 146 H Potassium 3.1 L Chloride 116 H Carbon Dioxide 23 BUN 25 H D Creatinine 0.88 Glucose 123 H Calcium 8.7 - ABG Interpretation ABG results: PT/INR, D-dimer PT 12.8 Seconds (9.4-12.1) H 08/09/16 18:53 - Impressions Impressions Needle Aspiration CT 08/11/16 00:00 IMPRESSION: Successful left lower quadrant drainage catheter placement into the fluid collection which yielded thick brownish bloody appearing fluid. A sample was sent to lab for evaluation. Recommend flushing this a couple times a day to assure patency. D/ / Wild Matthews MD / Wild Matthews MD Interpreting Provider: Wild Matthews MD Consult Discharge Plan - Plan Referrals: Rey Cummins MD [Primary Care Provider] -
[2016-08-11] MEDS ORDERED: Levofloxacin 750 MG/150 ML 750 MG/150 ML BAG IVPB SCH (20:00)
[2016-08-11] MEDS: Mirtazapine 15 MG TABLET PO SCH (22:11)
[2016-08-12] MEDS: MetroNIDAZOLE 500 MG/100 ML 500 MG/100 ML BAG IVPB SCH ×4 (03:15→21:21)
[2016-08-12] MEDS: Ipratropium/Albuterol Neb 3 ML IH SCH ×6 (03:52→23:20)
[2016-08-12] MEDS: Famotidine 20 MG/2 ML VIAL IVP SCH (04:42)
[2016-08-12] MEDS: *HR* Heparin 5,000 UNIT/ML VIAL SQ SCH ×2 (04:42→18:19)
[2016-08-12] MEDS: Insulin LISPRO 300 UNITS/3 ML VIAL SQ SCH ×4 (09:55→21:23)
[2016-08-12] MEDS: Cholecalciferol (D-3) 1,000 UNIT TABLET PO SCH (10:38)
[2016-08-12] MEDS: Aspirin Enteric Coated 325 MG Tablet PO SCH (10:38)
[2016-08-12] MEDS: Furosemide 20 MG TABLET PO SCH (10:38)
[2016-08-12] MEDS: Vancomycin Oral Soln 250 MG/2.5 ML UDC PO SCH ×4 (10:38→21:22)
--- NOTE | 2016-08-12 10:54 | Palliative Progress Note ---
Date of Encounter: 08/12/16 Time of Encounter: 10:00 - Assessment and plan (1) C. difficile colitis Current Visit: Yes Status: Acute Assessment and plan: Under treatment currently and per hospitalist team. (2) Intra-abdominal fluid collection Current Visit: Yes Status: Acute Assessment and plan: Drained yesterday. Fluid described as thick bloody and brownish preliminary report is no growth at 24 hours, there does not appear to have been anything on Gram stain either. (I am not clear if the Gram stain was not done, or if nothing was seen on it) (3) Intra-abdominal abscess Current Visit: Yes Status: Acute Assessment and plan: It has been drained, did not appear to be pus on initial survey church. Her biology shows no growth at 24 hours. He cannot tell if there was a Gram stain done or not, if it was done and it showed nothing.. Antibiotics per hospitalist team, surgery is also following (4) Goals of care, counseling/discussion Current Visit: Yes Status: Acute Assessment and plan: Patient is established DNR CCA DNI. Discussion with patient and daughter this morning confirms that. The overall plan is to return to [facility] for rehabilitation after hospitalization. The goal is to try to return home, however the patient must be able to ambulate to some degree to be safe at home. Discussion with daughter regarding the repeated infections. The patient is clearly not a hospice candidate at this time after discussion with she and her daughter. They are aware where it fits into the plan should she continue to decline. As of this morning no changes to the above. (5) Pain Current Visit: Yes Status: Acute Assessment and plan: Under control at this time continue current meds. - Time Spent With Patient Total time spent is greater than 50% in coordination of care (as documented) at patient's floor/unit and/or counseling patient: - Subjective Interval history: The patient is resting comfortably, family states that she was more perky and await an alert alert yesterday after getting the wound pocket drained in her abdomen,'s morning although she felt sleepy she ate better. Overall seems to be doing better. She does feel more sleepy however. Per the family the achiness that she was feeling yesterday seems to be slightly better. - Constitutional Vitals: Abnormal lab results WBC 4.2 K/mcL (4.3-11.1) L 08/11/16 04:26 RBC 3.03 M/mcL (3.82-4.97) L 08/11/16 04:26 Hgb 9.5 g/dL (11.5-15.4) L 08/11/16 04:26 Hct 30.5 % (35.3-44.9) L 08/11/16 04:26 MCV 100.7 fL (83.0-100.0) H 08/11/16 04:26 MCHC 31.1 g/dL (31.6-35.5) L 08/11/16 04:26 Plt Count 102 K/mcL (140-400) L 08/11/16 04:26 Band Neutrophils % 16.0 % (0-4) H 08/10/16 03:06 Platelet Estimate Slight Decrease (Normal) L 08/11/16 04:26 PT 12.8 Seconds (9.4-12.1) H 08/09/16 18:53 APTT 25.5 Seconds (26.0-36.0) L 08/09/16 18:53 Sodium 146 mEq/L (136-145) H 08/11/16 04:26 Potassium 3.1 mEq/L (3.5-4.5) L 08/11/16 04:26 Chloride 116 mEq/L (98-109) H 08/11/16 04:26 BUN 25 mg/dL (7-20) H D 08/11/16 04:26 BUN/Creatinine Ratio 28 (6-26) H 08/11/16 04:26 Glucose 123 mg/dL (70-99) H 08/11/16 04:26 POC Glucose 114 (58-89) H 08/11/16 20:23 Calculated Osmolality 308 (280-300) H 08/11/16 04:26 Magnesium 1.5 mg/dL (1.6-2.6) L 08/11/16 04:26 C-Reactive Protein 147 mg/L (Less than 5) H 08/09/16 18:53 B-Natriuretic Peptide 170 pg/mL (0-100) H 08/09/16 18:52 Albumin 3.2 g/dL (3.5-5.0) L 08/09/16 18:53 Globulin 3.6 g/dL (2.4-3.5) H 08/09/16 18:53 Albumin/Globulin Ratio 0.9 (1.1-2.2) L 08/09/16 18:53 Urine Bilirubin Small (Negative) H 08/09/16 19:35 Ur Leukocyte Esterase Small (Negative) H 08/09/16 19:35 Ur Squamous Epith Cells Many per lpf (None-Few) H 08/09/16 19:35 Ur Culture Indicated? YES (NO) A 08/09/16 19:35 Salicylates < 5.0 mg/dL (15-30) L 08/09/16 18:53 Acetaminophen < 1.0 mcg/mL (10-30) L 08/09/16 18:53 Staphylococcus sp PCR DETECTED (Not Detect) A 08/09/16 18:53 General appearance: Present: no acute distress - Head Head exam: Present: atraumatic, normal inspection - Eye Eye exam: Present: normal appearance - ENT ENT exam: Present: mucous membranes moist - Respiratory Respiratory exam: Present: decreased breath sounds - Cardiovascular Cardiovascular exam: Present: RRR - GI/Abdominal GI/Abdominal exam: Present: normal bowel sounds (Appears to be much less tender than yesterday. There is a JORI drain on the left-hand side.), soft. Absent: tenderness - Extremities Exam Extremities exam: Present: normal inspection. Absent: tenderness - Neurological Exam Neurological exam: Present: altered (She is resting comfortably at this time I did not attempt to wake her, however according to the family she awakens easily , has been much more alert than yesterday morning.) - Psychiatric Psychiatric exam: Absent: agitated, anxious (Per family report) - Skin Skin exam: Present: dry, warm Palliative Quality Palliative Quality: Screen for Code Status: Yes, Screen for Goals of Care: Yes, Screen for Pain: Yes, If Pain Regimen Started, Initiate Bowel Regimen: Yes, Screen for Nausea/Vomitting: Yes Code Status: 08/10/16 00:22 DNR [Resuscitation Status: Active] [RES] Routine Comment: Resuscitation Status: [id number] - Labs CBC & Chem 7: 08/11/16 04:26 08/11/16 04:26 Labs: Laboratory Results - last 24 hr 08/11/16 08/11/16 08/11/16 05:48 11:46 17:38 POC Glucose 97 H 114 H 122 H Vancomycin Trough Specimen Rejected 08/11/16 08/11/16 08/12/16 20:23 20:30 03:00 POC Glucose 114 H Vancomycin Trough 15.1 Specimen Rejected Hemolyzed - Impressions Impressions Needle Aspiration CT 08/11/16 00:00 IMPRESSION: Successful left lower quadrant drainage catheter placement into the fluid collection which yielded thick brownish bloody appearing fluid. A sample was sent to lab for evaluation. Recommend flushing this a couple times a day to assure patency. D/ / Wild Matthews MD / Wild Matthews MD Interpreting Provider: Wild Matthews MD - ABG Interpretation ABG results: PT/INR, D-dimer PT 12.8 Seconds (9.4-12.1) H 08/09/16 18:53 Consult Discharge Plan - Plan Referrals: Rey Cummins MD [Primary Care Provider] -
--- NOTE | 2016-08-12 15:34 | Internal Med Progress Note ---
Date of Encounter: 08/12/16 Time of Encounter: 15:32 - Assessment and plan (1) C. 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 (3) CHF (congestive heart failure) Current Visit: Yes Status: Chronic Assessment and plan: History of CHF and nonischemic cardiomyopathy, LVEF unknown, not in exacerbation Strict I's and O's and daily weight not in acute exacerbation, continue home medications Qualifiers: Congestive heart failure type: unspecified congestive heart failure type Congestive heart failure chronicity: chronic Qualified Code(s): I50.9 - Heart failure, unspecified (4) Intra-abdominal abscess Current Visit: Yes Status: Acute Assessment and plan: New finding of intra-abdominal fluid collection in the left anterior pelvis on CT of the abdomen - s/p IR guided drainage yest- brownish fluid obtained and sent for cx. Continue IV antibiotics will follow up cultures (5) Sepsis Current Visit: Yes Status: Acute Assessment and plan: Sepsis with acute encephalopathy-mental status has improved. Sepsis resolved possibly secondary to C. difficile colitis and due to intra-abdominal fluid collection possibly abscess-s/p drain placement by interventional radiology () Afebrile at this time PICC line removed, was growing gram positive cocci from cath tip. f/u repeat blood cultures preliminary blood cultures show gram positive Cocci. started IV vancomyicn in addition to Levaquin, PO Vancomycin, and IV flagyl continue mechanically altered diet Palliative care team consultation appreciated Qualifiers: Sepsis type: sepsis due to unspecified organism Qualified Code(s): A41.9 - Sepsis, unspecified organism (6) Goals of care, counseling/discussion Current Visit: Yes Status: Acute Assessment and plan: Patient is established DNR CCA DNI. Discussion with patient and daughter this morning confirms that. The overall plan is to return to [facility] for rehabilitation after hospitalization. The goal is to try to return home, however the patient must be able to ambulate to some degree to be safe at home. Discussion with daughter regarding the repeated infections. The patient is clearly not a hospice candidate at this time after discussion with she and her daughter. They are aware where it fits into the plan should she continue to decline. - Subjective Interval history: seen at the [facility] with the daughter, daughter reports that she is much more awake and alert than yest. denies much abdominal pain today, s/p drainage of the abdominal abscess yest by IR. no fever, n/v. - Constitutional Vitals: Temp Pulse Resp BP Pulse Ox 98.9 F 62 16 134/59 96 08/12/16 11:58 08/12/16 11:58 08/12/16 11:58 08/12/16 11:58 08/12/16 11:58 General appearance: Present: cooperative, A&O X 2 (at baseline, not aware of date), pleasant, no acute distress, obese, answers questions appropriately Exam: - Head Head exam: Present: atraumatic, normocephalic - Eye Eye exam: Present: conjuntiva pink, sclera anicteric - Respiratory Respiratory exam: Absent: respiratory distress, wheezes - Cardiovascular Cardiovascular exam: Present: RRR, +S1, +S2. Absent: diastolic murmur, gallop, rubs, systolic murmur - GI/Abdominal GI/Abdominal exam: Present: normal bowel sounds, soft. Absent: tenderness (LLQ JORI drain in place) - Extremities Exam Extremities exam: Present: warm, radial pulses palpable and symetrical. Absent : calf tenderness - Neurological Exam Neurological exam: Present: alert - Psychiatric Psychiatric exam: Present: normal affect, normal mood Internal Medicine: Result - Labs CBC & Chem 7: 08/11/16 04:26 08/11/16 04:26 - ABG Interpretation ABG results: PT/INR, D-dimer PT 12.8 Seconds (9.4-12.1) H 08/09/16 18:53 Consult Discharge Plan - Plan Referrals: Rey Cummins MD [Primary Care Provider] -
--- NOTE | 2016-08-12 16:09 | General Surgery Progress Note ---
Date of Encounter: 08/12/16 Time of Encounter: 16:00 - Assessment and Plan (1) Altered mental status Current Visit: Yes Status: Acute mental status seems to wax and wane but is always more alert for family Qualifiers: Altered mental status type: transient alteration of awareness Qualified Code(s): R40.4 - Transient alteration of awareness (2) Intra-abdominal fluid collection Current Visit: Yes Status: Acute CT report from [facility] reviewed from when after patient fell in [facility] and she apparently had a pelvic hematoma and [facility]. IR placed drain into what is likely organized old hematoma from that fall. No surgical interventions needed. General surgery will sign off at this time. Please call if needed. Subjective Patient reports: no new complaints Narrative: patient denied abdominal pain or nausea Objective Vital Signs - Last 8 Hours Temp Pulse Resp BP Pulse Ox 08/12/16 11:58 98.9 F 62 16 134/59 96 08/12/16 11:16 16 96 08/12/16 10:30 96 Intake and Output 08/12/16 08/12/16 08/12/16 07:59 15:59 23:59 Intake Total 0 / 0 100 / 100 Output Total 875 / 875 Balance -875 / -875 100 / 100 Intake: IV Fluids 0 / 0 100 / 100 Flagyl Premix 500 MG/100 0 / 0 100 / 100 ML 500 mg In 100 ml @ 100 mls/hr IVPB Q6H [facility] Rx#: [id number] Oral 0 / 0 Output: Straight Cath 800 / 800 Wound Drainage 75 / 75 Left Abdomen 75 / 75 Other: Weight 78.018 kg Blood Glucose* 109 Patient Weight 08/12/16 23:59 Weight 78.018 kg - General physical appearance well nourished, no distress - Eyes normal ocular movement - ENT normal mucosa, normocephalic - Respiratory normal respiratory effort - Abdomen Abdomen: Present: soft, non tender Additional Comments: IR drain with clear brown drainage consistent with old hematoma - Integumentary no growths - Musculoskeletal normal posture - Psychiatric oriented to person - Labs 08/11/16 04:26 08/11/16 04:26 Consult Discharge Plan - Plan Referrals: Rey Cummins MD [Primary Care Provider] -
[2016-08-12] MEDS: Vancomycin 1,250 MG in D5% in Water 250 ML IVPB SCH (21:21)
[2016-08-12] MEDS: Mirtazapine 15 MG TABLET PO SCH (21:23)
[2016-08-13] MEDS: Ipratropium/Albuterol Neb 3 ML IH SCH ×5 (03:52→19:58)
[2016-08-13] MEDS: *HR* Heparin 5,000 UNIT/ML VIAL SQ SCH ×2 (04:51→18:17)
[2016-08-13] MEDS: Famotidine 20 MG/2 ML VIAL IVP SCH (04:51)
[2016-08-13] MEDS: MetroNIDAZOLE 500 MG/100 ML 500 MG/100 ML BAG IVPB SCH ×3 (05:00→14:18)
--- NOTE | 2016-08-13 08:03 | Palliative Progress Note ---
Date of Encounter: 08/13/16 Time of Encounter: 07:30 - Assessment and plan (1) C. difficile colitis Current Visit: Yes Status: Acute Assessment and plan: Under treatment currently and per hospitalist team. (2) Intra-abdominal fluid collection Current Visit: Yes Status: Acute Assessment and plan: Drained yesterday. Fluid described as thick bloody and brownish preliminary report is no growth at 24 hours, there does not appear to have been anything on Gram stain either. (I am not clear if the Gram stain was not done, or if nothing was seen on it) Scant drainage today. Per surgical note it appears this was a resolving hematoma. (3) Intra-abdominal abscess Current Visit: Yes Status: Acute Assessment and plan: It has been drained, did not appear to be pus on initial survey church. Her biology shows no growth at 24 hours. He cannot tell if there was a Gram stain done or not, if it was done and it showed nothing.. Antibiotics per hospitalist team, surgery is also following Per surgery this appears to be resolving hematoma. (4) Goals of care, counseling/discussion Current Visit: Yes Status: Acute Assessment and plan: Patient is established DNR CCA DNI. Discussion with patient and daughter this morning confirms that. The overall plan is to return to [facility] for rehabilitation after hospitalization. The goal is to try to return home, however the patient must be able to ambulate to some degree to be safe at home. Discussion with daughter regarding the repeated infections. The patient is clearly not a hospice candidate at this time after discussion with she and her daughter. They are aware where it fits into the plan should she continue to decline. As of this morning no changes to the above. No changes are anticipated today. (5) Pain Current Visit: Yes Status: Acute Assessment and plan: Under control at this time continue current meds. - Time Spent With Patient Total time spent is greater than 50% in coordination of care (as documented) at patient's floor/unit and/or counseling patient: - Subjective Interval history: The patient is resting comfortably, no family is present. He did not elect with the patient up, there were no events overnight. She has used no pain medication. - Constitutional Vitals: Abnormal lab results WBC 4.2 K/mcL (4.3-11.1) L 08/11/16 04:26 RBC 3.03 M/mcL (3.82-4.97) L 08/11/16 04:26 Hgb 9.5 g/dL (11.5-15.4) L 08/11/16 04:26 Hct 30.5 % (35.3-44.9) L 08/11/16 04:26 MCV 100.7 fL (83.0-100.0) H 08/11/16 04:26 MCHC 31.1 g/dL (31.6-35.5) L 08/11/16 04:26 Plt Count 102 K/mcL (140-400) L 08/11/16 04:26 Band Neutrophils % 16.0 % (0-4) H 08/10/16 03:06 Platelet Estimate Slight Decrease (Normal) L 08/11/16 04:26 PT 12.8 Seconds (9.4-12.1) H 08/09/16 18:53 APTT 25.5 Seconds (26.0-36.0) L 08/09/16 18:53 Sodium 146 mEq/L (136-145) H 08/11/16 04:26 Potassium 3.1 mEq/L (3.5-4.5) L 08/11/16 04:26 Chloride 116 mEq/L (98-109) H 08/11/16 04:26 BUN 25 mg/dL (7-20) H D 08/11/16 04:26 BUN/Creatinine Ratio 28 (6-26) H 08/11/16 04:26 Glucose 123 mg/dL (70-99) H 08/11/16 04:26 POC Glucose 139 (58-89) H 08/12/16 21:02 Calculated Osmolality 308 (280-300) H 08/11/16 04:26 Magnesium 1.5 mg/dL (1.6-2.6) L 08/11/16 04:26 C-Reactive Protein 147 mg/L (Less than 5) H 08/09/16 18:53 B-Natriuretic Peptide 170 pg/mL (0-100) H 08/09/16 18:52 Albumin 3.2 g/dL (3.5-5.0) L 08/09/16 18:53 Globulin 3.6 g/dL (2.4-3.5) H 08/09/16 18:53 Albumin/Globulin Ratio 0.9 (1.1-2.2) L 08/09/16 18:53 Urine Bilirubin Small (Negative) H 08/09/16 19:35 Ur Leukocyte Esterase Small (Negative) H 08/09/16 19:35 Ur Squamous Epith Cells Many per lpf (None-Few) H 08/09/16 19:35 Ur Culture Indicated? YES (NO) A 08/09/16 19:35 Salicylates < 5.0 mg/dL (15-30) L 08/09/16 18:53 Acetaminophen < 1.0 mcg/mL (10-30) L 08/09/16 18:53 Staphylococcus sp PCR DETECTED (Not Detect) A 08/09/16 18:53 General appearance: Present: no acute distress - Head Head exam: Present: atraumatic, normal inspection - ENT ENT exam: Present: mucous membranes moist (Getting breathing treatment) - Respiratory Respiratory exam: Present: decreased breath sounds - Cardiovascular Cardiovascular exam: Present: RRR - GI/Abdominal GI/Abdominal exam: Present: normal bowel sounds, soft. Absent: tenderness ( Very small amount of drainage from the John-Coello drain on the left-hand side.) - Extremities Exam Extremities exam: Present: normal inspection. Absent: pedal edema, tenderness - Neurological Exam Neurological exam: Present: alert (The patient is asleep, I elected not to wake her to do a more formal exam. There are no notes of any problems.) - Skin Skin exam: Present: dry, warm Palliative Quality Palliative Quality: Screen for Code Status: Yes, Screen for Goals of Care: Yes, Screen for Pain: Yes, If Pain Regimen Started, Initiate Bowel Regimen: Yes, Screen for Nausea/Vomitting: Yes Code Status: 08/10/16 00:22 DNR [Resuscitation Status: Active] [RES] Routine Comment: Resuscitation Status: [id number] - Labs CBC & Chem 7: 08/11/16 04:26 08/11/16 04:26 Labs: Laboratory Results - last 24 hr 08/12/16 08/12/16 08/12/16 08:01 11:49 17:11 POC Glucose 93 H 109 H 128 H Stl C. diff Tox B Gene 08/12/16 08/12/16 21:02 21:09 POC Glucose 139 H Stl C. diff Tox B Gene Positive - ABG Interpretation ABG results: PT/INR, D-dimer PT 12.8 Seconds (9.4-12.1) H 08/09/16 18:53 Consult Discharge Plan - Plan Referrals: Rey Cummins MD [Primary Care Provider] -
[2016-08-13] MEDS: Insulin LISPRO 300 UNITS/3 ML VIAL SQ SCH ×4 (08:10→21:28)
[2016-08-13] MEDS: Vancomycin Oral Soln 250 MG/2.5 ML UDC PO SCH ×4 (09:07→21:31)
[2016-08-13] MEDS: Cholecalciferol (D-3) 1,000 UNIT TABLET PO SCH (09:08)
[2016-08-13] MEDS: Aspirin Enteric Coated 325 MG Tablet PO SCH (09:08)
[2016-08-13] MEDS: Furosemide 20 MG TABLET PO SCH (09:08)
[2016-08-13 12:46] LABS: Mean Corpuscular Volume 100.3 fL (83.0-100.0); Mean Platelet Volume 9.6 fL (9.4-12.4); Red Blood Count 3.19 M/mcL (3.82-4.97)
[2016-08-13 12:48] LABS: Basophils % 0.6 %; Eosinophils # 0.1 K/mcL (0.0-0.6); Immature Granulocytes % 1.2 % (0-4); Immature Platelets 1.9 % (1.1-6.1); Lymphocytes # 0.7 K/mcL (0.6-4.6); Lymphocytes % 20.7 %; Mean Corpuscular HGB Conc 31.3 g/dL (31.6-35.5); Mean Corpuscular Hemoglobin 31.3 pg (28.0-33.3); Monocytes # 0.3 K/mcL (0.0-1.3); Monocytes % 9.8 %; Neutrophils # 2.1 K/mcL (1.6-8.9); Platelet Count 101 K/mcL (140-400); Red Cell Distribution Width 13.1 % (11.5-14.5); Segmented Neutrophils % 64.7 %
[2016-08-13 12:59] LABS: BUN/Creatinine Ratio 17 (6-26); Blood Urea Nitrogen 16 mg/dL (7-20); Calcium 8.6 mg/dL (8.6-10.8); Carbon Dioxide 23 mEq/L (19-29); Chloride 110 mEq/L (98-109); Glucose 172 mg/dL (70-99); Osmolality,Calculated 295 (280-300); Potassium 3.2 mEq/L (3.5-4.5); Sodium 140 mEq/L (136-145); eGFR For African Americans > 60 (> 60); eGFR For Non-African Americans 57 (> 60)
--- NOTE | 2016-08-13 15:28 | Internal Med Progress Note ---
Date of Encounter: 08/13/16 Time of Encounter: 15:25 - Assessment and plan (1) C. difficile colitis Current Visit: Yes Status: Acute Assessment and plan: first episode, on oral vacomycin and IV Flagyl no diarrhea today, improving. shawn stop IV flagyl and continue oral vanco to complete 14 days of treatment. 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 Normal right ventricular structure and function. Strict I's and O's and daily weight not in acute exacerbation, continue home medications Qualifiers: Congestive heart failure type: unspecified congestive heart failure type Congestive heart failure chronicity: chronic Qualified Code(s): I50.9 - Heart failure, unspecified (4) Intra-abdominal abscess Current Visit: Yes Status: Acute Assessment and plan: New finding of intra-abdominal fluid collection in the left anterior pelvis on CT of the abdomen - s/p IR guided drainage yest- brownish fluid obtained and sent for cx. As per surgery this was probably resolved hematoma, cx has been negative (5) Sepsis Current Visit: Yes Status: Acute Assessment and plan: Sepsis with acute encephalopathy-mental status has improved. Sepsis resolved possibly secondary to C. difficile colitis and CLABSI in adult. Afebrile at this time PICC line removed, both of blood culture and the culture from the catheter tip growing coagulase-negative staph which is probably a true infection given positive in multiple sites. repeat blood cultures showed no growth. Will stop levofloxacin and will continue vancomycin for 10 more days starting from the day with the negative blood culture. Qualifiers: Sepsis type: sepsis due to unspecified organism Qualified Code(s): A41.9 - Sepsis, unspecified organism (6) Goals of care, counseling/discussion Current Visit: Yes Status: Acute Assessment and plan: Patient is established DNR CCA DNI. Discussion with patient and daughter this morning confirms that. The overall plan is to return to [facility] for rehabilitation after hospitalization. The goal is to try to return home, however the patient must be able to ambulate to some degree to be safe at home. Discussion with daughter regarding the repeated infections. The patient is clearly not a hospice candidate at this time after discussion with she and her daughter. They are aware where it fits into the plan should she continue to decline. - Subjective Interval history: seen at the bedside with the daughter, slow to respond but alert and awake. denies abdominal pain or diarrhea today, status post IR guided drainage of the abdominal stool collection yesterday. no fever, n/v. - Constitutional Vitals: Temp Pulse Resp BP Pulse Ox 97.6 F 60 15 134/70 95 08/13/16 12:25 08/13/16 12:25 08/13/16 12:25 08/13/16 12:25 08/13/16 12:25 General appearance: Present: cooperative, A&O X 2 (at baseline, not aware of date), pleasant, no acute distress, obese, answers questions appropriately Exam: - Head Head exam: Present: atraumatic, normocephalic - Eye Eye exam: Present: conjuntiva pink, sclera anicteric - Respiratory Respiratory exam: Absent: respiratory distress, wheezes - Cardiovascular Cardiovascular exam: Present: RRR, +S1, +S2. Absent: diastolic murmur, gallop, rubs, systolic murmur - GI/Abdominal GI/Abdominal exam: Present: normal bowel sounds, soft. Absent: tenderness (LLQ JORI drain in place) - Extremities Exam Extremities exam: Present: warm, radial pulses palpable and symetrical. Absent : calf tenderness - Neurological Exam Neurological exam: Present: alert - Psychiatric Psychiatric exam: Present: normal affect, normal mood Internal Medicine: Result - Labs CBC & Chem 7: 08/13/16 12:34 08/13/16 12:34 Labs: Short CBC 08/13/16 Range/Units 12:34 WBC 3.3 L (4.3-11.1) K/mcL Hgb 10.0 L (11.5-15.4) g/dL Hct 32.0 L (35.3-44.9) % Plt Count 101 L (140-400) K/mcL Neutrophils # 2.1 (1.6-8.9) K/mcL BMP 08/13/16 12:34 Sodium 140 Potassium 3.2 L Chloride 110 H Carbon Dioxide 23 BUN 16 Creatinine 0.93 Glucose 172 H Calcium 8.6 - ABG Interpretation ABG results: PT/INR, D-dimer PT 12.8 Seconds (9.4-12.1) H 08/09/16 18:53 Consult Discharge Plan - Plan Referrals: Rey Cummins MD [Primary Care Provider] -
[2016-08-13] MEDS: Mirtazapine 15 MG TABLET PO SCH (21:31)
[2016-08-13] MEDS: Vancomycin 1,250 MG in D5% in Water 250 ML IVPB SCH (21:32)
[2016-08-14] MEDS: Ipratropium/Albuterol Neb 3 ML IH SCH ×4 (00:26→11:11)
[2016-08-14] MEDS: *HR* Heparin 5,000 UNIT/ML VIAL SQ SCH (05:55)
[2016-08-14] MEDS: Famotidine 20 MG/2 ML VIAL IVP SCH (05:55)
[2016-08-14] MEDS: Insulin LISPRO 300 UNITS/3 ML VIAL SQ SCH ×2 (08:35→11:23)
[2016-08-14 09:24] LABS: Mean Corpuscular Volume 98.8 fL (83.0-100.0); Red Cell Distribution Width 13.2 % (11.5-14.5)
[2016-08-14 09:26] LABS: Hematocrit 32.1 % (35.3-44.9); Hemoglobin 10.1 g/dL (11.5-15.4); Immature Platelets 2.2 % (1.1-6.1); Mean Corpuscular HGB Conc 31.5 g/dL (31.6-35.5); Mean Corpuscular Hemoglobin 31.1 pg (28.0-33.3); Mean Platelet Volume 9.6 fL (9.4-12.4); Monocytes # 0.3 K/mcL (0.0-1.3); Platelet Count 105 K/mcL (140-400); Red Blood Count 3.25 M/mcL (3.82-4.97)
[2016-08-14] MEDS: Vancomycin Oral Soln 250 MG/2.5 ML UDC PO SCH ×2 (09:26→13:38)
[2016-08-14] MEDS: Furosemide 20 MG TABLET PO SCH (09:26)
[2016-08-14] MEDS: Cholecalciferol (D-3) 1,000 UNIT TABLET PO SCH (09:26)
[2016-08-14] MEDS: Aspirin Enteric Coated 325 MG Tablet PO SCH (09:26)
[2016-08-14 09:41] LABS: BUN/Creatinine Ratio 18 (6-26); Blood Urea Nitrogen 15 mg/dL (7-20); Carbon Dioxide 26 mEq/L (19-29); Chloride 108 mEq/L (98-109); Glucose 99 mg/dL (70-99); Osmolality,Calculated 295 (280-300); Potassium 3.1 mEq/L (3.5-4.5); Sodium 142 mEq/L (136-145); eGFR For African Americans > 60 (> 60); eGFR For Non-African Americans > 60 (> 60)
[2016-08-14 09:47] LABS: Basophils # 0.1 K/mcL (0.0-0.2); Eosinophils # 0.1 K/mcL (0.0-0.6); Lymphocytes # 1.2 K/mcL (0.6-4.6); Neutrophils # 1.5 K/mcL (1.6-8.9)
[2016-08-14 10:33] VITALS: BP 131/68
--- NOTE | 2016-08-14 11:01 | Palliative Progress Note ---
Date of Encounter: 08/14/16 Time of Encounter: 07:40 - Assessment and plan (1) C. difficile colitis Current Visit: Yes Status: Acute Assessment and plan: Under treatment currently and per hospitalist team. (2) Intra-abdominal fluid collection Current Visit: Yes Status: Acute Assessment and plan: Drained appears to have been resolving hematoma, cultures have been negative.. Per surgical note it appears this was a resolving hematoma. (3) Intra-abdominal abscess Current Visit: Yes Status: Acute Assessment and plan: It has been drained, did not appear to be pus on initial survey church. Her biology shows no growth at 24 hours. He cannot tell if there was a Gram stain done or not, if it was done and it showed nothing.. Antibiotics per hospitalist team, surgery is also following Per surgery this appears to be resolving hematoma. No growth to date, (4) Goals of care, counseling/discussion Current Visit: Yes Status: Acute Assessment and plan: Patient is established DNR CCA DNI. Discussion with patient and daughter this morning confirms that. The overall plan is to return to [facility] for rehabilitation after hospitalization. The goal is to try to return home, however the patient must be able to ambulate to some degree to be safe at home. Discussion with daughter regarding the repeated infections. The patient is clearly not a hospice candidate at this time after discussion with she and her daughter. They are aware where it fits into the plan should she continue to decline. As of this morning no changes to the above. No changes are anticipated today. No changes today. (5) Pain Current Visit: Yes Status: Acute Assessment and plan: Under control at this time continue current meds. - Time Spent With Patient Total time spent is greater than 50% in coordination of care (as documented) at patient's floor/unit and/or counseling patient: - Subjective Interval history: The patient awakens easily this morning, however she is not oriented her speech is at times difficult to follow. No family is present. The patient does not have any complaints of at this time. Does not appear to be any distress. - Constitutional Vitals: Abnormal lab results WBC 3.1 K/mcL (4.3-11.1) L 08/14/16 09:16 RBC 3.25 M/mcL (3.82-4.97) L 08/14/16 09:16 Hgb 10.1 g/dL (11.5-15.4) L 08/14/16 09:16 Hct 32.1 % (35.3-44.9) L 08/14/16 09:16 MCHC 31.5 g/dL (31.6-35.5) L 08/14/16 09:16 Plt Count 105 K/mcL (140-400) L 08/14/16 09:16 Band Neutrophils % 16.0 % (0-4) H 08/10/16 03:06 Neutrophils # 1.5 K/mcL (1.6-8.9) L 08/14/16 09:16 Platelet Estimate Slight Decrease (Normal) L 08/11/16 04:26 PT 12.8 Seconds (9.4-12.1) H 08/09/16 18:53 APTT 25.5 Seconds (26.0-36.0) L 08/09/16 18:53 Potassium 3.1 mEq/L (3.5-4.5) L 08/14/16 09:16 POC Glucose 110 (58-89) H 08/14/16 10:27 Magnesium 1.5 mg/dL (1.6-2.6) L 08/11/16 04:26 C-Reactive Protein 147 mg/L (Less than 5) H 08/09/16 18:53 B-Natriuretic Peptide 170 pg/mL (0-100) H 08/09/16 18:52 Albumin 3.2 g/dL (3.5-5.0) L 08/09/16 18:53 Globulin 3.6 g/dL (2.4-3.5) H 08/09/16 18:53 Albumin/Globulin Ratio 0.9 (1.1-2.2) L 08/09/16 18:53 Urine Bilirubin Small (Negative) H 08/09/16 19:35 Ur Leukocyte Esterase Small (Negative) H 08/09/16 19:35 Ur Squamous Epith Cells Many per lpf (None-Few) H 08/09/16 19:35 Ur Culture Indicated? YES (NO) A 08/09/16 19:35 Salicylates < 5.0 mg/dL (15-30) L 08/09/16 18:53 Acetaminophen < 1.0 mcg/mL (10-30) L 08/09/16 18:53 Staphylococcus sp PCR DETECTED (Not Detect) A 08/09/16 18:53 General appearance: Present: no acute distress - Head Head exam: Present: atraumatic, normal inspection - Eye Eye exam: Present: normal appearance - ENT ENT exam: Present: mucous membranes moist - Neck Neck exam: Present: normal inspection - Respiratory Respiratory exam: Present: decreased breath sounds - Cardiovascular Cardiovascular exam: Present: RRR - GI/Abdominal GI/Abdominal exam: Present: normal bowel sounds, soft. Absent: tenderness (No new drainage noticed in the [place].) - Extremities Exam Extremities exam: Absent: tenderness - Neurological Exam Neurological exam: Present: alert, altered - Psychiatric Psychiatric exam: Absent: agitated, anxious - Skin Skin exam: Present: dry, warm Palliative Quality Palliative Quality: Screen for Code Status: Yes, Screen for Goals of Care: Yes, Screen for Pain: Yes, If Pain Regimen Started, Initiate Bowel Regimen: Yes, Screen for Nausea/Vomitting: Yes Code Status: 08/10/16 00:22 DNR [Resuscitation Status: Active] [RES] Routine Comment: Resuscitation Status: [id number] - Labs CBC & Chem 7: 08/14/16 09:16 08/14/16 09:16 Labs: Laboratory Results - last 24 hr 08/13/16 08/13/16 08/13/16 12:34 12:34 20:50 WBC 3.3 L RBC 3.19 L Hgb 10.0 L Hct 32.0 L MCV 100.3 H MCH 31.3 MCHC 31.3 L RDW 13.1 Plt Count 101 L MPV 9.6 Immature Gran % 1.2 Seg Neutrophils % 64.7 Lymphocytes % 20.7 Monocytes % 9.8 Eosinophils % 3.0 Basophils % 0.6 Neutrophils # 2.1 Lymphocytes # 0.7 Monocytes # 0.3 Eosinophils # 0.1 Basophils # 0.0 Immature Plt Fraction 1.9 Sodium 140 Potassium 3.2 L Chloride 110 H Carbon Dioxide 23 BUN 16 Creatinine 0.93 Est GFR ( Amer) > 60 Est GFR (Non-Af Amer) 57 L BUN/Creatinine Ratio 17 Glucose 172 H POC Glucose 170 H Calculated Osmolality 295 Calcium 8.6 08/14/16 08/14/16 08/14/16 06:37 09:16 09:16 WBC 3.1 L RBC 3.25 L Hgb 10.1 L Hct 32.1 L MCV 98.8 MCH 31.1 MCHC 31.5 L RDW 13.2 Plt Count 105 L MPV 9.6 Immature Gran % Seg Neutrophils % 48.0 Lymphocytes % 40.0 Monocytes % 8.0 Eosinophils % 2.0 Basophils % 2.0 Neutrophils # 1.5 L Lymphocytes # 1.2 Monocytes # 0.3 Eosinophils # 0.1 Basophils # 0.1 Immature Plt Fraction 2.2 Sodium 142 Potassium 3.1 L Chloride 108 Carbon Dioxide 26 BUN 15 Creatinine 0.84 Est GFR ( Amer) > 60 Est GFR (Non-Af Amer) > 60 BUN/Creatinine Ratio 18 Glucose 99 POC Glucose 94 H Calculated Osmolality 295 Calcium 9.0 08/14/16 10:27 WBC RBC Hgb Hct MCV MCH MCHC RDW Plt Count MPV Immature Gran % Seg Neutrophils % Lymphocytes % Monocytes % Eosinophils % Basophils % Neutrophils # Lymphocytes # Monocytes # Eosinophils # Basophils # Immature Plt Fraction Sodium Potassium Chloride Carbon Dioxide BUN Creatinine Est GFR ( Amer) Est GFR (Non-Af Amer) BUN/Creatinine Ratio Glucose POC Glucose 110 H Calculated Osmolality Calcium - ABG Interpretation ABG results: PT/INR, D-dimer PT 12.8 Seconds (9.4-12.1) H 08/09/16 18:53 Consult Discharge Plan - Plan Referrals: Rey Cummins MD [Primary Care Provider] -
--- NOTE | 2016-08-14 11:10 | Discharge Summary ---
Date of Encounter: 08/14/16 Time of Encounter: 11:07 - Discharge Diagnosis (1) C. 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 (3) CHF (congestive heart failure) Priority: Secondary Status: Chronic Qualifiers: Congestive heart failure type: unspecified congestive heart failure type Congestive heart failure chronicity: chronic Qualified Code(s): I50.9 - Heart failure, unspecified (4) Intra-abdominal abscess Priority: Primary Status: Acute (5) Sepsis Priority: Primary Status: Acute Qualifiers: Sepsis type: sepsis due to unspecified organism Qualified Code(s): A41.9 - Sepsis, unspecified organism (6) Goals of care, counseling/discussion Priority: Secondary Status: Acute - Discharge Medications Prescriptions: Tramadol HCl [Ultram] 50 mg PO BID PRN #20 tablet PRN Reason: Pain Vancomycin [Vancocin] 1,250 mg IV Q24H 11 Days Vancomycin Oral Soln [Vancocin] 125 mg PO QID 8 Days Home Medications: Acetaminophen [Acetaminophen ER] 650 mg PO Q4HR 08/10/16 [History] Albuterol Neb [Proventil Neb] 2.5 mg Q4HR PRN 08/10/16 [History] Aspirin Enteric Coated [Aspirin EC] 325 mg PO DAILY 08/10/16 [History] Benzonatate [Tessalon] 100 mg PO TID PRN 08/10/16 [History] Cholecalciferol (Vitamin D3) [Vitamin D3] 1,000 unit PO DAILY 08/10/16 [History] Furosemide [Lasix] 60 mg PO DAILY 08/10/16 [History] GuaiFENesin/Dextromethorphan [Robitussin/Dm] 10 ml PO Q4HR PRN 08/10/16 [History ] Ipratropium/Albuterol Neb [Duoneb] 3 ml IH Q4HR PRN 08/10/16 [History] Loratadine [Allergy Relief] 10 mg PO DAILY 08/10/16 [History] Magnesium Hydroxide [Milk of Magnesia] 30 ml PO DAILY PRN 08/10/16 [History] Melatonin [Melatin] 2 mg PO HS 08/10/16 [History] Mirtazapine [Remeron] 15 mg PO HS 08/10/16 [History] Polyvinyl Alcohol [Artificial Tears] 2 drop BOTH EYES BID 08/10/16 [History] Potassium Chloride [Klor-Con 10] 10 meq PO DAILY 08/10/16 [History] Sennosides/Docusate Sodium [Senna-S Tablet] 2 tab PO BID 08/10/16 [History] Sertraline HCl [Zoloft] 25 mg PO DAILY 08/10/16 [History] Silver Sulfadiazine Cream [Silvadene] 1 appl TP BID 08/10/16 [History] Simvastatin [Zocor] 40 mg PO HS 08/10/16 [History] Trazodone HCl 25 mg PO HS PRN 08/10/16 [History] Tramadol HCl [Ultram] 50 mg PO BID PRN #20 tablet 08/14/16 [Rx] Vancomycin Oral Soln [Vancocin] 125 mg PO QID 8 Days 08/14/16 [Rx] Vancomycin [Vancocin] 1,250 mg IV Q24H 11 Days 08/14/16 [Rx] Allergies/Adverse Reactions: Allergies acetaminophen [From Percocet] Allergy (Verified 08/09/16 18:31) See Comments adhesive tape Allergy (Verified 08/09/16 18:31) See Comments cephalexin [From Keflex] Allergy (Verified 08/09/16 18:31) See Comments lisinopril Allergy (Verified 08/09/16 18:31) Redness of Skin Oxycodone [From Percocet] Allergy (Verified 08/09/16 18:31) See Comments Penicillins Allergy (Verified 08/09/16 18:31) See Comments Procedures/tests Complete & Pending: Procedures Performed prior 72 hours Category Date Time Status EV echocardiogram Routine Y 08/11/16 22:40 Completed Date of admission: 08/09/16 22:36 Primary care physician: Rey Cummins MD Consults: 08/10/16 00:01 Consult to Speech Therapy [CONS] Routine Comment: Evaluate, develop and implement POC Reason for Consult: Difficulty swallowing, difficulty with speech Call Completed: No 08/10/16 00:02 Consult to Wound Care [CONS] Routine Reason for Consult: Stage 2 coccyx Call Completed: No 08/10/16 00:23 Consult to Palliative Care [CONS] Routine Comment: Consulting Provider: Palliative Care Prabha Reason for Consult: sepsis, cardiomyopathy, DNR/DNI status Call Completed: No 08/10/16 12:45 Consult to Interventional Radiology [CONS] Routine Consulting Provider: Radiology Interventional Cols Reason for Consult: intra-abdominal abscess Call Completed: No Discharging clinician: Letitia Plascencia Anticipated date of discharge: 08/14/16 - Patient Status Disposition: Transfer SNF Condition: Fair Functional capacity at discharge: uses cane/walker Overall status at discharge: patient is progressing back to baseline - Discharge Instructions Follow Up With: Augustina Leyva MD [Partnered Physician] - 08/18/16 8:30 am (JORI drain check) Rey Cummins MD [Primary Care Provider] - Additional Instructions: Remove JORI drain on 08/19/16 Remove IV line after last dose of IV antibiotics - Diet and Activity Activity: as per physical therapy Diet: advance to your usual diet Interval History: Ms. Stone is a 86 year old female with past medical history of CHF, nonischemic cardiomyopathy, atrial fibrillation, osteoarthritis, fibromyalgia, hyperlipidemia and hypertension. She presents to the ED from skilled nursing for altered mental status.Patient had labs done yesterday and patient was positive for C. difficile. Patient has had few episodes of diarrhea. She has been on by mouth vancomycin and Flagyl. Patient's daughter states that patient is usually awake and alert and able to converse, but over the past few days she has been increasingly lethargic. She does have a PICC line in place for the past 2-1/2 months and is received several courses of antibiotics. Patient was initially hypotensive in the ED , She does have a pacemaker and EKG shows paced rhythm. Urinalysis is fairly within normal limits. Her CRP is markedly elevated. She does not have an elevated white count but does have a fever. CT of the abdomen and pelvis shows some fluid collection in the abdomen, underwent IR guided drainage with a J-P drain taht seems to be a resolving hematoma from last admission as per surgery, unlikely an abscess. blood cx was positive for caog neg stapph from both the peripheral site and the PICC line. she was tretaed with IV Vanco and richy PICC lline was removed. she was also tretaed for c. diff with oral vanco and IV flagyl. seh has improved clincally with the treatment of c. diff and the bacteremia with no fever or leucocytosis, mental status has improved. she is being dc back to [place] with IV vanco for 2 weeks after the neg blood cx,a power glide has been placed and instructions have been provided for the line to be removed once the antibiotic has finished, will also give her oral vanco to complete 14 days of treatment. seh will be given f/u with surgery for the J-P drain removal. Hospital course: Ms. Stone is a 86 year old female - Time Spent with Patient Total time spent providing and/or coordinating discharge services: - Constitutional Vitals: Temp Pulse Resp BP Pulse Ox 98.1 F 60 14 131/68 96 08/14/16 10:31 08/14/16 10:31 08/14/16 10:31 08/14/16 10:31 08/14/16 10:31 General appearance: Present: cooperative, A&O X 2 (at baseline, not aware of date), pleasant, no acute distress, obese, answers questions appropriately Exam: - Head Head exam: Present: atraumatic, normocephalic - Eye Eye exam: Present: conjuntiva pink, sclera anicteric - Respiratory Respiratory exam: Absent: respiratory distress, wheezes - Cardiovascular Cardiovascular exam: Present: RRR, +S1, +S2. Absent: diastolic murmur, gallop, rubs, systolic murmur - GI/Abdominal GI/Abdominal exam: Present: normal bowel sounds, soft. Absent: tenderness (LLQ JORI drain in place) - Extremities Exam Extremities exam: Present: warm, radial pulses palpable and symetrical. Absent : calf tenderness - Neurological Exam Neurological exam: Present: alert - Psychiatric Psychiatric exam: Present: normal affect, normal mood
--- NOTE | 2016-08-14 11:12 | Physician Discharge Referral ---
ExtendedCare Referral Info Transfer To: [facility] Provider in Charge: juan m tovar Institutional Level of Care: Intermediate - Diagnosis (1) C. difficile colitis Status: Acute (2) Frail elderly Status: Chronic (3) CHF (congestive heart failure) Status: Chronic (4) Intra-abdominal abscess Status: Acute (5) Sepsis Status: Acute (6) Goals of care, counseling/discussion Status: Acute - Transfer Medications Prescriptions: Vancomycin [Vancocin] 1,250 mg IV Q24H 11 Days Vancomycin Oral Soln [Vancocin] 125 mg PO QID 8 Days Home Medications: Acetaminophen [Acetaminophen ER] 650 mg PO Q4HR 08/10/16 [History] Albuterol Neb [Proventil Neb] 2.5 mg Q4HR PRN 08/10/16 [History] Aspirin Enteric Coated [Aspirin EC] 325 mg PO DAILY 08/10/16 [History] Benzonatate [Tessalon] 100 mg PO TID PRN 08/10/16 [History] Cholecalciferol (Vitamin D3) [Vitamin D3] 1,000 unit PO DAILY 08/10/16 [History] Furosemide [Lasix] 60 mg PO DAILY 08/10/16 [History] GuaiFENesin/Dextromethorphan [Robitussin/Dm] 10 ml PO Q4HR PRN 08/10/16 [History ] Ipratropium/Albuterol Neb [Duoneb] 3 ml IH Q4HR PRN 08/10/16 [History] Loratadine [Allergy Relief] 10 mg PO DAILY 08/10/16 [History] Magnesium Hydroxide [Milk of Magnesia] 30 ml PO DAILY PRN 08/10/16 [History] Melatonin [Melatin] 2 mg PO HS 08/10/16 [History] Mirtazapine [Remeron] 15 mg PO HS 08/10/16 [History] Polyvinyl Alcohol [Artificial Tears] 2 drop BOTH EYES BID 08/10/16 [History] Potassium Chloride [Klor-Con 10] 10 meq PO DAILY 08/10/16 [History] Sennosides/Docusate Sodium [Senna-S Tablet] 2 tab PO BID 08/10/16 [History] Sertraline HCl [Zoloft] 25 mg PO DAILY 08/10/16 [History] Silver Sulfadiazine Cream [Silvadene] 1 appl TP BID 08/10/16 [History] Simvastatin [Zocor] 40 mg PO HS 08/10/16 [History] Tramadol HCl [Ultram] 50 mg PO BID PRN 08/10/16 [History] Trazodone HCl 25 mg PO HS PRN 08/10/16 [History] Vancomycin Oral Soln [Vancocin] 125 mg PO QID 8 Days 08/14/16 [Rx] Vancomycin [Vancocin] 1,250 mg IV Q24H 11 Days 08/14/16 [Rx] Allergies/Adverse Reactions: Allergies acetaminophen [From Percocet] Allergy (Verified 08/09/16 18:31) See Comments adhesive tape Allergy (Verified 08/09/16 18:31) See Comments cephalexin [From Keflex] Allergy (Verified 08/09/16 18:31) See Comments lisinopril Allergy (Verified 08/09/16 18:31) Redness of Skin Oxycodone [From Percocet] Allergy (Verified 08/09/16 18:31) See Comments Penicillins Allergy (Verified 08/09/16 18:31) See Comments - Respiratory Orders Smoking Cessation: Smoking cessation has been advised. For more information, call the [place] Tobacco Quit Line at 3-738-VWWD-NOW. - Advance Directives Code Status: DNR-Arrest/Don't Intubate - Mobility Orders Chair - Rehabiliation Orders Rehab Potential: Fair Rehab Orders: Evaluation for Physical Therapy, Evaluation for Occupational Therapy - Treatments List/Other: the power glide should be removed once the IV antibiotic course is finished. - Diet Orders Mechanical Soft CERTIFICATION: I certify that the transfer of the above named patient to an Extended Care Facility is necessary for the continuing treatment of the diagnosis listed. The above information is true and accurate reflection of patient's current condition. Confidential - Redisclosure prohibited without a patient's written consent.
[2016-08-14] MEDS ORDERED: Aminoglycoside Consult 1 EACH MC ONE (14:12)
== END 2016-08-14 14:13 | DRG 314 ==
LOC: EMEROO 18:06 → 3BNU 18:06 → SUATTDRO 22:36
PROVIDERS: ADMIT Family Medicine; ATTEND Internal Medicine
PROC: IRDRAIN (2016-08-11 12:00)

== ENCOUNTER 2016-08-21 14:30 | Observation (INO) ==
[2016-08-21] MEDS ORDERED: 0.9 % Sodium Chloride 500 ML IVC ONE (14:42)
[2016-08-21 15:39] LABS: Basophils % 0.2 %; Eosinophils # 0.1 K/mcL (0.0-0.6); Eosinophils % 1.8 %; Hematocrit 30.8 % (35.3-44.9); Hemoglobin 9.9 g/dL (11.5-15.4); Immature Granulocytes % 0.3 % (0-4); Immature Platelets 1.5 % (1.1-6.1); Lymphocytes # 0.7 K/mcL (0.6-4.6); Lymphocytes % 11.2 %; Mean Corpuscular HGB Conc 32.1 g/dL (31.6-35.5); Mean Corpuscular Hemoglobin 31.4 pg (28.0-33.3); Mean Corpuscular Volume 97.8 fL (83.0-100.0); Monocytes # 0.4 K/mcL (0.0-1.3); Monocytes % 6.3 %; Neutrophils # 4.8 K/mcL (1.6-8.9); Platelet Count 196 K/mcL (140-400); Red Blood Count 3.15 M/mcL (3.82-4.97); Red Cell Distribution Width 13.2 % (11.5-14.5); Segmented Neutrophils % 80.2 %
[2016-08-21 15:52] LABS: INR 1.1; Prothrombin Time 11.9 Seconds (9.4-12.1)
[2016-08-21 15:53] LABS: Alanine Aminotransferase 20 Units/L (0-55); Albumin 3.1 g/dL (3.5-5.0); Albumin/Globulin Ratio 0.8 (1.1-2.2); Alkaline Phosphatase 85 Units/L (38-126); Aspartate Amino Transferase 21 Units/L (5-34); BUN/Creatinine Ratio 24 (6-26); Bilirubin,Direct 0.3 mg/dL (0.0-0.5); Bilirubin,Total 0.2 mg/dL (0.2-1.2); Blood Urea Nitrogen 22 mg/dL (7-20); Calcium 9.7 mg/dL (8.6-10.8); Carbon Dioxide 31 mEq/L (19-29); Chloride 100 mEq/L (98-109); Globulin 3.7 g/dL (2.4-3.5); Glucose 107 mg/dL (70-99); Lipase 25 Units/L (8-78); Osmolality,Calculated 294 (280-300); Phosphorous 4.7 mg/dL (2.3-4.7); Potassium 4.2 mEq/L (3.5-4.5); Sodium 140 mEq/L (136-145); Total Protein 6.8 g/dL (6.0-8.3); eGFR For African Americans > 60 (> 60); eGFR For Non-African Americans 57 (> 60)
[2016-08-21 15:56] LABS: Bilirubin,Urine Negative (Negative); Blood,Urine Large (Negative); Clarity,Urine Clear (Clear); Color,Urine Yellow (Yellow); Glucose,Urine (UA) Normal (Normal); Ketones,Urine Negative (Negative); Leukocyte Esterase,Urine Negative (Negative); Nitrite,Urine Negative (Negative); PH,Urine 6.5 pH Units (5.0-8.0); Protein,Urine Negative (Neg-Trace); Specific Gravity,Urine 1.014 (1.010-1.025); Urobilinogen,Urine Normal (Normal)
[2016-08-21 15:58] LABS: Bacteria,Urine None Seen per hpf (None-Few); Hyaline Casts,Urine None Seen per lpf (None-Few); RBC,Urine TNTC per hpf (0-3); Squamous Epithelial Cell,Urine Few per lpf (None-Few); WBC,Urine 0-3 per hpf (0-3)
--- NOTE | 2016-08-21 17:41 | Emergency Department Note ---
Disposition Clinical Impression: Weakness Altered mental status Qualifiers: Altered mental status type: unspecified Qualified Code(s): R41.82 - Altered mental status, unspecified Failure to thrive Qualifiers: Failure to thrive age range: in adult Qualified Code(s): R62.7 - Adult failure to thrive Disposition: Admitted As Inpatient Condition: Fair General Adult HPI - General Chief complaint: ED Altered Mental Status Stated complaint: lethargic Time Seen by Provider: 08/21/16 14:36 Source: EMS Mode of arrival: ambulatory Limitations: altered mental status Nursing Notes Reviewed: Yes Vital Signs Reviewed: Yes - History of Present Illness HPI Narrative: Patient transferred from nursing facility secondary to lethargy and decreased responsiveness. Patient is reportedly being treated for C. difficile and has concern for possible sacral skin infection. Initial heart rate of 68 with stable blood pressure. Patient is afebrile at this time. Overall concern would be for sepsis and altered mental status workup. Will further discuss with family when they arrive. The facility physician has recommended hospice and palliative care per the family would like everything to be performed. Patient is a DNR CCA. There is an intra-abdominal drain in place. Right PICC line in place. Erythema over the sacrum. Pain Scale: 0 - Related Data Home Medications Medication Instructions Recorded Confirmed Acetaminophen [Acetaminophen ER] 650 mg PO Q4HR PRN 08/10/16 08/21/16 Albuterol Neb [Proventil Neb] 2.5 mg Q4HR PRN 08/10/16 08/21/16 Aspirin Enteric Coated [Aspirin EC] 325 mg PO DAILY 08/10/16 08/21/16 Benzonatate [Tessalon] 100 mg PO TID PRN 08/10/16 08/21/16 Cholecalciferol (Vitamin D3) 1,000 unit PO DAILY 08/10/16 08/21/16 [Vitamin D3] Furosemide [Lasix] 60 mg PO DAILY 08/10/16 08/21/16 GuaiFENesin/Dextromethorphan 10 ml PO Q4HR PRN 08/10/16 08/21/16 [Robitussin/Dm] Ipratropium/Albuterol Neb [Duoneb] 3 ml IH TID 08/10/16 08/21/16 Loratadine [Allergy Relief] 10 mg PO DAILY 08/10/16 08/21/16 Magnesium Hydroxide [Milk of 30 ml PO DAILY PRN 08/10/16 08/21/16 Magnesia] Mirtazapine [Remeron] 15 mg PO HS 08/10/16 08/21/16 Polyvinyl Alcohol [Artificial 2 drop BOTH EYES BID 08/10/16 08/21/16 Tears] Potassium Chloride [Klor-Con 10] 10 meq PO DAILY 08/10/16 08/21/16 Sennosides/Docusate Sodium 1 tab PO Q12H PRN 08/10/16 08/21/16 [Senna-S Tablet] Simvastatin [Zocor] 40 mg PO HS 08/10/16 08/21/16 Trazodone HCl 25 mg PO HS PRN 08/10/16 08/21/16 Melatonin 2 mg PO HS 08/21/16 08/21/16 Multivitamin-Min/Iron/FA/Vit K 1 each PO DAILY 08/21/16 08/21/16 [Multi-Day Plus Minerals Tablet] Nut Tx, Lact-Reduced, Iron [Boost 60 ml PO QID 08/21/16 08/21/16 [facility]] Oxygen 2 l NS AD 08/21/16 08/21/16 Sertraline [Zoloft] 25 mg PO DAILY 08/21/16 08/21/16 Tramadol HCl [Ultram] 50 mg PO BID 08/21/16 08/21/16 Tramadol HCl [Ultram] 50 mg PO Q12H PRN 08/21/16 08/21/16 Vancomycin [Vancocin] 750 mg IV DAILY 08/21/16 08/21/16 Previous Rx's Medication Instructions Recorded Vancomycin Oral Soln [Vancocin] 125 mg PO QID 8 Days 08/14/16 Allergies Allergy/AdvReac Type Severity Reaction Status Date / Time acetaminophen [From Percocet] Allergy See Verified 08/09/16 18:31 Comments adhesive tape Allergy See Verified 08/09/16 18:31 Comments cephalexin [From Keflex] Allergy See Verified 08/09/16 18:31 Comments lisinopril Allergy Redness of Verified 08/09/16 18:31 Skin Oxycodone [From Percocet] Allergy See Verified 08/09/16 18:31 Comments Penicillins Allergy See Verified 08/09/16 18:31 Comments Limitations: ROS unobtainable due to patients medical condition Past Medical History - Past Medical History Medical history: Reports: atrial fibrillation, cardiomyopathy, CHF, dementia, fibromyalgia, hyperlipidemia, hypertension, osteoporosis, other Surgical history: Reports: cataract (Bilateral), cholecystectomy, knee replacement (Right-sided), orthopedic, other (Right femur fracture repair), ureteral stent (Surgery for renal calculi), pacemaker Psychiatric history: Reports: depression - Social History Smoking Status: Unknown if ever smoked Smokeless Tobacco Status: No Alcohol use: Reports: none Drug use: Reports: none Physical Exam General appearance: Not conversive. HER eyes to look around but does not respond Eyes: anicteric sclerae, moist conjunctivae; PERRL HENT: Atraumatic; oropharynx clear with moist mucous membranes and no mucosal ulcerations Neck: Normal inspection; Trachea midline; FROM, supple Lungs: CTA, with normal respiratory effort and no intercostal retractions CV: RRR, no MRGs Abdomen: Soft, non-tender; no rebound or gaurding Extremities: No peripheral edema or extremity lymphadenopathy Skin: Erythema consistent with stage I decubitus ulcer Psych: Flat affect Neuro: Awake but not oriented to person place or time - General Limitations: altered mental status General appearance: lethargic Course - Reevaluation(s) Reevaluation #1: After significant discussion with family. She was previously upon recent discharge able to have a conversation and even saying. Patient was able to take care of some basic activities of daily living. They understand that there is not an acute reason or specific cause to bring the patient into the hospital , however, fluids have increased her alertness and her mental status. She continues to have diarrhea with her C. difficile as well as receiving antibiotics for her skin infection but is unable to take in the calories or hydration needed. We will discuss with the hospitalist regarding further disposition. - Consultations Consultation #1: Patient accepted for continued observation and management in regards to her overall status. Patient may have a guarded prognosis however we will be able to further monitor, evaluate, treat within hospital. Vital Signs Temperature 100 F H 08/21/16 14:33 Pulse Rate 63 08/21/16 14:33 Respiratory Rate 20 08/21/16 14:33 Blood Pressure 122/58 08/21/16 14:33 O2 Sat by Pulse Oximetry 96 08/21/16 14:33 Temperature 98 F 08/21/16 23:06 Pulse Rate 60 08/21/16 23:06 Respiratory Rate 16 08/21/16 23:06 Blood Pressure 120/47 08/21/16 23:06 O2 Sat by Pulse Oximetry 93 08/21/16 23:06 Oxygen Delivery Oxygen Delivery Nasal Cannula Medical Decision Making - Lab Data Result diagrams: 08/21/16 15:31 08/21/16 15:31 Lab Results 08/21/16 08/21/16 08/21/16 Range/Units 15:31 15:31 15:31 WBC 6.0 (4.3-11.1) K/mcL RBC 3.15 L (3.82-4.97) M/mcL Hgb 9.9 L (11.5-15.4) g/dL Hct 30.8 L (35.3-44.9) % MCV 97.8 (83.0-100.0) fL MCH 31.4 (28.0-33.3) pg MCHC 32.1 (31.6-35.5) g/dL RDW 13.2 (11.5-14.5) % Plt Count 196 (140-400) K/mcL MPV 9.0 L (9.4-12.4) fL Immature Gran % 0.3 (0-4) % Seg Neutrophils % 80.2 % Lymphocytes % 11.2 % Monocytes % 6.3 % Eosinophils % 1.8 % Basophils % 0.2 % Neutrophils # 4.8 (1.6-8.9) K/mcL Lymphocytes # 0.7 (0.6-4.6) K/mcL Monocytes # 0.4 (0.0-1.3) K/mcL Eosinophils # 0.1 (0.0-0.6) K/mcL Basophils # 0.0 (0.0-0.2) K/mcL Immature Plt Fraction 1.5 (1.1-6.1) % PT 11.9 (9.4-12.1) Seconds INR 1.1 Sodium 140 (136-145) mEq/L Potassium 4.2 (3.5-4.5) mEq/L Chloride 100 (98-109) mEq/L Carbon Dioxide 31 H (19-29) mEq/L BUN 22 H (7-20) mg/dL Creatinine 0.93 (0.57-1.11) mg/dL Est GFR ( Amer) > 60 (> 60) Est GFR (Non-Af Amer) 57 L (> 60) BUN/Creatinine Ratio 24 (6-26) Glucose 107 H (70-99) mg/dL Calculated Osmolality 294 (280-300) Lactic Acid (0.5-2.2) mmol/L Calcium 9.7 (8.6-10.8) mg/dL Phosphorus 4.7 (2.3-4.7) mg/dL Magnesium 2.0 (1.6-2.6) mg/dL Total Bilirubin 0.2 (0.2-1.2) mg/dL Direct Bilirubin 0.3 (0.0-0.5) mg/dL Indirect Bilirubin 0.0 (0.0-1.2) mg/dL AST 21 (5-34) Units/L ALT 20 (0-55) Units/L Alkaline Phosphatase 85 (38-126) Units/L Troponin I (0-0.03) ng/mL Serum Total Protein 6.8 (6.0-8.3) g/dL Albumin 3.1 L (3.5-5.0) g/dL Globulin 3.7 H (2.4-3.5) g/dL Albumin/Globulin Ratio 0.8 L (1.1-2.2) Lipase 25 (8-78) Units/L Urine Color (Yellow) Urine Clarity (Clear) Urine pH (5.0-8.0) pH Units Ur Specific [place] (1.010-1.025) Urine Protein (Neg-Trace) mg/dL Urine Glucose (UA) (Normal) mg/dL Urine Ketones (Negative) mg/dL Urine Blood (Negative) Urine Nitrite (Negative) Urine Bilirubin (Negative) Urine Urobilinogen (Normal) mg/dL Ur Leukocyte Esterase (Negative) Urine Microscopic RBC (0-3) per hpf Urine Microscopic WBC (0-3) per hpf Ur Squamous Epith Cells (None-Few) per lpf Urine Bacteria (None-Few) per hpf Hyaline Casts (None-Few) per lpf Ur Culture Indicated? (NO) 08/21/16 08/21/16 08/21/16 Range/Units 15:31 15:31 15:43 WBC (4.3-11.1) K/mcL RBC (3.82-4.97) M/mcL Hgb (11.5-15.4) g/dL Hct (35.3-44.9) % MCV (83.0-100.0) fL MCH (28.0-33.3) pg MCHC (31.6-35.5) g/dL RDW (11.5-14.5) % Plt Count (140-400) K/mcL MPV (9.4-12.4) fL Immature Gran % (0-4) % Seg Neutrophils % % Lymphocytes % % Monocytes % % Eosinophils % % Basophils % % Neutrophils # (1.6-8.9) K/mcL Lymphocytes # (0.6-4.6) K/mcL Monocytes # (0.0-1.3) K/mcL Eosinophils # (0.0-0.6) K/mcL Basophils # (0.0-0.2) K/mcL Immature Plt Fraction (1.1-6.1) % PT (9.4-12.1) Seconds INR Sodium (136-145) mEq/L Potassium (3.5-4.5) mEq/L Chloride (98-109) mEq/L Carbon Dioxide (19-29) mEq/L BUN (7-20) mg/dL Creatinine (0.57-1.11) mg/dL Est GFR ( Amer) (> 60) Est GFR (Non-Af Amer) (> 60) BUN/Creatinine Ratio (6-26) Glucose (70-99) mg/dL Calculated Osmolality (280-300) Lactic Acid 0.6 (0.5-2.2) mmol/L Calcium (8.6-10.8) mg/dL Phosphorus (2.3-4.7) mg/dL Magnesium (1.6-2.6) mg/dL Total Bilirubin (0.2-1.2) mg/dL Direct Bilirubin (0.0-0.5) mg/dL Indirect Bilirubin (0.0-1.2) mg/dL AST (5-34) Units/L ALT (0-55) Units/L Alkaline Phosphatase (38-126) Units/L Troponin I 0.02 (0-0.03) ng/mL Serum Total Protein (6.0-8.3) g/dL Albumin (3.5-5.0) g/dL Globulin (2.4-3.5) g/dL Albumin/Globulin Ratio (1.1-2.2) Lipase (8-78) Units/L Urine Color Yellow (Yellow) Urine Clarity Clear (Clear) Urine pH 6.5 (5.0-8.0) pH Units Ur Specific [place] 1.014 (1.010-1.025) Urine Protein Negative (Neg-Trace) mg/dL Urine Glucose (UA) Normal (Normal) mg/dL Urine Ketones Negative (Negative) mg/dL Urine Blood Large H (Negative) Urine Nitrite Negative (Negative) Urine Bilirubin Negative (Negative) Urine Urobilinogen Normal (Normal) mg/dL Ur Leukocyte Esterase Negative (Negative) Urine Microscopic RBC TNTC H (0-3) per hpf Urine Microscopic WBC 0-3 (0-3) per hpf Ur Squamous Epith Cells Few (None-Few) per lpf Urine Bacteria None Seen (None-Few) per hpf Hyaline Casts None Seen (None-Few) per lpf Ur Culture Indicated? NO (NO) 08/21/16 Range/Units 17:37 WBC (4.3-11.1) K/mcL RBC (3.82-4.97) M/mcL Hgb (11.5-15.4) g/dL Hct (35.3-44.9) % MCV (83.0-100.0) fL MCH (28.0-33.3) pg MCHC (31.6-35.5) g/dL RDW (11.5-14.5) % Plt Count (140-400) K/mcL MPV (9.4-12.4) fL Immature Gran % (0-4) % Seg Neutrophils % % Lymphocytes % % Monocytes % % Eosinophils % % Basophils % % Neutrophils # (1.6-8.9) K/mcL Lymphocytes # (0.6-4.6) K/mcL Monocytes # (0.0-1.3) K/mcL Eosinophils # (0.0-0.6) K/mcL Basophils # (0.0-0.2) K/mcL Immature Plt Fraction (1.1-6.1) % PT (9.4-12.1) Seconds INR Sodium (136-145) mEq/L Potassium (3.5-4.5) mEq/L Chloride (98-109) mEq/L Carbon Dioxide (19-29) mEq/L BUN (7-20) mg/dL Creatinine (0.57-1.11) mg/dL Est GFR ( Amer) (> 60) Est GFR (Non-Af Amer) (> 60) BUN/Creatinine Ratio (6-26) Glucose (70-99) mg/dL Calculated Osmolality (280-300) Lactic Acid 0.6 (0.5-2.2) mmol/L Calcium (8.6-10.8) mg/dL Phosphorus (2.3-4.7) mg/dL Magnesium (1.6-2.6) mg/dL Total Bilirubin (0.2-1.2) mg/dL Direct Bilirubin (0.0-0.5) mg/dL Indirect Bilirubin (0.0-1.2) mg/dL AST (5-34) Units/L ALT (0-55) Units/L Alkaline Phosphatase (38-126) Units/L Troponin I (0-0.03) ng/mL Serum Total Protein (6.0-8.3) g/dL Albumin (3.5-5.0) g/dL Globulin (2.4-3.5) g/dL Albumin/Globulin Ratio (1.1-2.2) Lipase (8-78) Units/L Urine Color (Yellow) Urine Clarity (Clear) Urine pH (5.0-8.0) pH Units Ur Specific [place] (1.010-1.025) Urine Protein (Neg-Trace) mg/dL Urine Glucose (UA) (Normal) mg/dL Urine Ketones (Negative) mg/dL Urine Blood (Negative) Urine Nitrite (Negative) Urine Bilirubin (Negative) Urine Urobilinogen (Normal) mg/dL Ur Leukocyte Esterase (Negative) Urine Microscopic RBC (0-3) per hpf Urine Microscopic WBC (0-3) per hpf Ur Squamous Epith Cells (None-Few) per lpf Urine Bacteria (None-Few) per hpf Hyaline Casts (None-Few) per lpf Ur Culture Indicated? (NO) Attestation Statement - Attestation Attestation: I examined this patient and my medical decision-making was reviewed with the PHOTOGRAPHY COLORIST/PA/Advanced Practice Nurse/Resident Physician. I agree with the documented findings, disposition and treatment plan as described except to the extent set forth below. In summary 86-year-old female with a history of recent abdominal infection, C. difficile, resides in local nursing facility and on vancomycin presenting with concern for altered mental status. Only she is verbal, singing, eating normally. Today she is not following commands and not eating. She is protecting her airway. Her vital signs are stable. Extensive workup including advanced imaging of the head, chest, abdomen and pelvis show no acute findings and resolving fluid collection. There is no significant metabolic derangements to explain the degree of encephalopathy. Plan to admit for further evaluation of altered mental status in the setting of inability to tolerate nutrition.
--- NOTE | 2016-08-21 19:59 | Internal Med History&Physical ---
<Dayday Valenzuela - Last Filed: 08/23/16 01:14> Date of Encounter: 08/23/16 Time of Encounter: 19:58 Assessment and Plan (1) Altered mental status Current visit: Yes Status: Acute Patient presents from nursing facility with altered mental status, alert and oriented 1. Patient is currently receiving IV vancomycin for intra-abdominal collection, oral vancomycin for C. difficile. According to the family she has been having low-grade fevers, subjectively. - Blood cultures, urine culture, lactic acid collected. - Lactic acids nonsignificant 2. - Troponin negative - There is blood in the urine but this is noticed after catheter placement. - Chest x-ray demonstrates stable cardiomegaly - Head CT demonstrates no acute intracranial abnormalities. - Abdominal pelvis CT demonstrate near complete resolution of the previously identified anterior pelvic fluid collection. Which now has a pigtail drainage in place. Immediately adjacent to the pigtail tip there is persistent small 2.5 cm collection. Otherwise no acute findings with the abdomen or pelvis. Plan: - Blood cultures pending. - We will hold any sedative or altering medications. - Avoid any opiates, benzodiazepines - Continue to check vitals every shift - Continue treatment for C. difficile and IV vancomycin. Qualifiers: Qualified Code(s): R41.82 - Altered mental status, unspecified (2) Frail elderly Current visit: Yes Status: Chronic The facility physician has recommended hospice and palliative care per the family would like everything to be performed. - Patient was seen by palliative care and the last time she was in the hospital. - We will consult palliative care for further evaluation. (3) Cardiomegaly Current visit: No Status: Acute Chest x-ray demonstrates stable cardio megaly. - Last echocardiogram performed 08/09/2016 demonstrates left ventricular ejection fraction 60%. Grossly normal left ventricular chamber size and function. Mild concentric left ventricular hypertrophy. Indeterminate diastolic function. Normal right ventricular structure and function. Severely delineated left atrium. Current status is stable. (4) S/P PICC central line placement Current visit: Yes Status: Acute Patient was admitted with a PICC line in the right upper extremity. She has been receiving IV vancomycin. No signs of erythema or edema around the PICC line. (5) Intra-abdominal fluid collection Current visit: Yes Status: Acute Improving with repeat CT of the abdomen and pelvis. Still having drainage into the JORI drain. No signs of erythema, edema or purulent drainage around the drain site. -stable. (6) DVT prophylaxis Current visit: Yes Status: Acute Subjective Kimber's heparin every 8 hours Internal Medicine - H&P: HPI Chief complaint: altered mental status Plans for Post Hospital Care: Transfer [facility] Facility History of present illness: Ms. Stone is a 86 year old female presents to [facility] from [facility] with altered mental status. The patient is currently receiving oral vancomycin and IV vancomycin for treatment of C. difficile and intra-abdominal abscess. This morning she was poorly responsive, not swallowing, unable to identify where she was or person place or time. There is concern from her correction worker and she was transported to [facility] for further evaluation. In the emergency department she had a period of lucency where she was awake and interactive but upon evaluation this evening she stares with poor responses to questions. She was able to say she was at [place] was unsure of the month, time, her name, or anybody else including family members in the room. Her daughter was sitting at bedside and said this is completely abnormal from her baseline. She mentioned that her mother was started on medications at the correction since April that were new and she is concerned that they may be contributing to her current state. She does mention that yesterday she had some loose bowel movements has been taking her medications including IV vancomycin and oral vancomycin as scheduled. She said that the IV vancomycin was reduced to 750 from its original dose yesterday. Of note she has a drain in her abdomen for a collection and is supposed to have the drain removed tomorrow by Dr. Da Silav. Mrs. Stein have been seen by palliative care during her last hospitalization but according to the family after discussions there was no further action regarding her current state. Past Med Surg Social Fam HX - Past Medical History Medical history: atrial fibrillation, cardiomyopathy, CHF, dementia, fibromyalgia, hyperlipidemia, hypertension, osteoporosis, other Psychiatric history: depression - Past Surgical History Surgical History: cataract (Bilateral), cholecystectomy, knee replacement (Right -sided), orthopedic, other (Right femur fracture repair), ureteral stent ( Surgery for renal calculi), pacemaker - Social History Smoking Status: Unknown if ever smoked Smokeless Tobacco Status: No Alcohol use: none Drug use: none - Family History Daughter Living Status: Still Living Hx Family Cardiac Disorders: Yes (HTN, HLD) Hx Family Respiratory Disorders: No Hx Family Cancer: No Hx Family GI Disorders: Yes (GERD) Hx Family Endocrine Disorder: No Hx Family Neuromuscular Disorders: No Hx Family Neurologic Disorders: No Hx Family HEENT Disorders: No Hx Family Autoimmune Disorders: No Son Hx Family Cardiac Disorders: Yes (Stroke) Hx Family Genitourinary Disorders: Yes (Dialysis) Father Living Status: Hx Family Cardiac Disorders: Yes ([place]) Internal Medicine - H&P: Meds Acetaminophen [Acetaminophen ER] 650 mg PO Q4HR PRN 08/10/16 [History] Albuterol Neb [Proventil Neb] 2.5 mg Q4HR PRN 08/10/16 [History] Aspirin Enteric Coated [Aspirin EC] 325 mg PO DAILY 08/10/16 [History] Benzonatate [Tessalon] 100 mg PO TID PRN 08/10/16 [History] Cholecalciferol (Vitamin D3) [Vitamin D3] 1,000 unit PO DAILY 08/10/16 [History] Furosemide [Lasix] 60 mg PO DAILY 08/10/16 [History] GuaiFENesin/Dextromethorphan [Robitussin/Dm] 10 ml PO Q4HR PRN 08/10/16 [History ] Ipratropium/Albuterol Neb [Duoneb] 3 ml IH TID 08/10/16 [History] Loratadine [Allergy Relief] 10 mg PO DAILY 08/10/16 [History] Magnesium Hydroxide [Milk of Magnesia] 30 ml PO DAILY PRN 08/10/16 [History] Mirtazapine [Remeron] 15 mg PO HS 08/10/16 [History] Polyvinyl Alcohol [Artificial Tears] 2 drop BOTH EYES BID 08/10/16 [History] Potassium Chloride [Klor-Con 10] 10 meq PO DAILY 08/10/16 [History] Sennosides/Docusate Sodium [Senna-S Tablet] 1 tab PO Q12H PRN 08/10/16 [History] Simvastatin [Zocor] 40 mg PO HS 08/10/16 [History] Trazodone HCl 25 mg PO HS PRN 08/10/16 [History] Vancomycin Oral Soln [Vancocin] 125 mg PO QID 8 Days 08/14/16 [Rx] Melatonin 2 mg PO HS 08/21/16 [History] Multivitamin-Min/Iron/FA/Vit K [Multi-Day Plus Minerals Tablet] 1 each PO DAILY 08/21/16 [History] Nut Tx, Lact-Reduced, Iron [Boost Vhc] 60 ml PO QID 08/21/16 [History] Oxygen 2 l NS AD 08/21/16 [History] Sertraline [Zoloft] 25 mg PO DAILY 08/21/16 [History] Tramadol HCl [Ultram] 50 mg PO BID 08/21/16 [History] Tramadol HCl [Ultram] 50 mg PO Q12H PRN 08/21/16 [History] Vancomycin [Vancocin] 750 mg IV DAILY 08/21/16 [History] Allergies acetaminophen [From Percocet] Allergy (Verified 08/09/16 18:31) See Comments adhesive tape Allergy (Verified 08/09/16 18:31) See Comments cephalexin [From Keflex] Allergy (Verified 08/09/16 18:31) See Comments lisinopril Allergy (Verified 08/09/16 18:31) Redness of Skin Oxycodone [From Percocet] Allergy (Verified 08/09/16 18:31) See Comments Penicillins Allergy (Verified 08/09/16 18:31) See Comments ROS unobtainable: due to mental status All Systems PM: A 10-system review of systems was performed and is negative for pertinent findings except as documented above in the HPI. - Constitutional Vitals: Temp Pulse Resp BP Pulse Ox 98.9 F 62 18 144/92 95 08/21/16 19:20 08/21/16 18:01 08/21/16 19:20 08/21/16 19:20 08/21/16 18:01 Exam: General: Patient alert, awake, altered and mildly interactive, in no acute distress, alert and oriented 1 HEENT: Normocephalic, atraumatic, pupils equal reactive to light, nasal cavity patent and open septum median position, oral mucosa moist, uvula midline, neck supple trachea midline no palpable lymphadenopathy, no thyromegaly. Chest: Symmetric bilateral correlating with respiratory effort, effort nonlabored. Cardiac: Regular rate and rhythm, grade 3/6 systolic ejection murmur, no bruits appreciated bilateral carotids, Radial pulses 2+ bilateral, posterior tibial and dorsal pedal pulses 2+ bilateral. Respiratory: Clear to auscultation all lung lopez Abdomen: Soft, nontender, positive bowel sounds, no palpable masses appreciated on examination. JORI drainage tube with bloody collection in canister, no signs of erythema or edema or drainage around the site. Extremities: Symmetric bilateral, bilateral lower extremities without erythema or edema patient moving all 4 extremities spontaneously. Neurologic: No focal deficits appreciated on examination. Face symmetric, Internal Med - H&P Results - Labs CBC & Chem 7: 08/22/16 04:42 08/22/16 04:42 <Letitia Plascencia - Last Filed: 08/23/16 05:55> Date of Encounter: 08/23/16 Internal Medicine - H&P: HPI History of present illness: Ms. Stone is a 86 year old female All Systems PM: A 10-system review of systems was performed and is negative for pertinent findings except as documented above in the HPI. - Constitutional Vitals: Temp Pulse Resp BP Pulse Ox 97.6 F 60 14 112/54 97 08/23/16 03:05 08/23/16 03:05 08/23/16 03:05 08/23/16 03:05 08/23/16 03:05 Internal Med - H&P Results - Labs CBC & Chem 7: 08/22/16 04:42 08/22/16 04:42 Labs: BMP 08/22/16 04:42 Carbon Dioxide 31 H - Attending Attestation I examined this patient and my medical decision-making was reviewed with the Resident Physician. I agree with the documented findings, disposition and treatment plan as described
[2016-08-21] MEDS ORDERED: Naloxone 0.4 MG/ML INJ IVP PRN (20:28)
[2016-08-21] MEDS ORDERED: Ondansetron ODT 4 MG TAB.RAPDIS SL PRN (20:28)
[2016-08-22] MEDS ORDERED: Sennosides/Docusate Sodium TABLET PO PRN (00:12)
[2016-08-22] MEDS ORDERED: Benzonatate 100 MG CAPSULE PO PRN (00:12)
[2016-08-22] MEDS ORDERED: Acetaminophen 325 MG TABLET PO PRN (00:12)
[2016-08-22] MEDS ORDERED: NON-FORMULARY MEDICATION 1 EACH EACH (Oxygen [Oxygen] 2 L) NS SCH (00:15)
[2016-08-22] MEDS ORDERED: Vancomycin 1,250 MG in D5% in Water 250 ML IVPB SCH (01:00)
[2016-08-22 05:06] LABS: Basophils % 0.3 %; Eosinophils # 0.1 K/mcL (0.0-0.6); Eosinophils % 3.3 %; Hematocrit 30.2 % (35.3-44.9); Hemoglobin 9.8 g/dL (11.5-15.4); Immature Granulocytes % 0.5 % (0-4); Lymphocytes # 0.9 K/mcL (0.6-4.6); Lymphocytes % 21.9 %; Mean Corpuscular HGB Conc 32.5 g/dL (31.6-35.5); Mean Corpuscular Hemoglobin 32.2 pg (28.0-33.3); Mean Corpuscular Volume 99.3 fL (83.0-100.0); Mean Platelet Volume 9.1 fL (9.4-12.4); Monocytes # 0.4 K/mcL (0.0-1.3); Monocytes % 9.5 %; Neutrophils # 2.6 K/mcL (1.6-8.9); Platelet Count 146 K/mcL (140-400); Red Blood Count 3.04 M/mcL (3.82-4.97); Red Cell Distribution Width 13.3 % (11.5-14.5); Segmented Neutrophils % 64.5 %
[2016-08-22 05:23] LABS: BUN/Creatinine Ratio 24 (6-26); Blood Urea Nitrogen 23 mg/dL (7-20); Calcium 9.9 mg/dL (8.6-10.8); Chloride 104 mEq/L (98-109); Glucose 89 mg/dL (70-99); Osmolality,Calculated 299 (280-300); Potassium 3.7 mEq/L (3.5-4.5); Sodium 143 mEq/L (136-145); eGFR For African Americans > 60 (> 60); eGFR For Non-African Americans 55 (> 60)
[2016-08-22] MEDS: *HR* Heparin 5,000 UNIT/ML VIAL SQ SCH ×2 (05:41→17:21)
[2016-08-22 05:51] LABS: Carbon Dioxide 31 mEq/L (19-29)
[2016-08-22] MEDS ORDERED: Vancomycin 1,500 MG in D5% in Water 250 ML IVPB SCH (06:00)
[2016-08-22] MEDS: Pantoprazole 40 MG VIAL IVP SCH (09:18)
[2016-08-22] MEDS: Artificial Tears SOLN 15 ML BOTTLE BOTH EYES SCH ×2 (09:18→21:32)
[2016-08-22] MEDS: Aspirin Enteric Coated 325 MG Tablet PO SCH ×2 (09:19→12:10)
[2016-08-22] MEDS: Furosemide 20 MG TABLET PO SCH ×2 (09:19→12:10)
[2016-08-22] MEDS: Vancomycin Oral Soln 250 MG/2.5 ML UDC PO SCH ×5 (09:19→21:31)
[2016-08-22] MEDS: Ipratropium/Albuterol Neb 3 ML IH SCH ×3 (12:39→23:23)
--- NOTE | 2016-08-22 14:24 | Internal Med Progress Note ---
Date of Encounter: 08/22/16 Time of Encounter: 14:22 - Assessment and plan (1) Bacteremia Current Visit: Yes Status: Acute Assessment and plan: culture from 08/10 showed staph hominins and epidermidis both sensitive to IV vancomycin continue IV vanco through PICC (2) C. difficile colitis Current Visit: No Status: Acute Assessment and plan: continue oral vancomycin (3) Dehydration Current Visit: No Status: Acute Assessment and plan: IVF (4) Altered mental status Current Visit: No Status: Acute Assessment and plan: likely secondary to decontinioning and dementia Qualifiers: Altered mental status type: transient alteration of awareness Qualified Code(s): R40.4 - Transient alteration of awareness (5) CHF (congestive heart failure) Current Visit: No Status: Chronic Assessment and plan: stable, no exacerbation Qualifiers: Congestive heart failure type: diastolic Congestive heart failure chronicity: chronic Qualified Code(s): I50.32 - Chronic diastolic (congestive ) heart failure (6) S/P PICC central line placement Current Visit: Yes Status: Acute (7) Intra-abdominal fluid collection Current Visit: Yes Status: Acute Assessment and plan: drain in place, CT scan showes reduction of the intrabdominal collection (8) Weakness Current Visit: Yes Status: Acute Assessment and plan: due to severe decontintioning spoke with daughter regarding her poor chances of returning to her baseline. Palliative care consult - Subjective Interval history: lethargic, able to tell me her name, oriented in person only, appears comfortable, unable to complete ROS - Constitutional Vitals: Temp Pulse Resp BP Pulse Ox 98.0 F 60 18 108/54 98 08/22/16 12:27 08/22/16 12:27 08/22/16 12:27 08/22/16 12:27 08/22/16 12:27 General appearance: Present: A&O X 1 - Head Head exam: Present: atraumatic, normocephalic - Eye Eye exam: Present: PERRL, conjuntiva pink, sclera anicteric Pupils: Present: PERRL - Neck Neck exam general surgery: Present: supple, trachea midline. Absent: lymphadenopathy - Respiratory Respiratory exam: Present: decreased breath sounds, CTAB. Absent: accessory muscle use, rales, rhonchi, wheezes - Cardiovascular Cardiovascular exam: Present: RRR, +S1, +S2. Absent: diastolic murmur, gallop, rubs, systolic murmur - GI/Abdominal GI/Abdominal exam: Present: distended (drain on the left lower quadrant), normal bowel sounds, soft, no peritoneal signs. Absent: tenderness - Extremities Exam Extremities exam: Present: warm, radial pulses palpable and symetrical. Absent : calf tenderness, cyanotic, pedal edema - Neurological Exam Neurological exam: Present: CN II-XII intact, no focal deficits. Absent: oriented X3, pronater drift, facial droop, speech deficit Additional comments: severe weakness in all extremities due to severe deconditioning - Skin Skin exam: Present: dry, intact Internal Medicine: Result - Labs CBC & Chem 7: 08/22/16 04:42 08/22/16 04:42 Labs: Short CBC 08/22/16 Range/Units 04:42 WBC 4.0 L (4.3-11.1) K/mcL Hgb 9.8 L (11.5-15.4) g/dL Hct 30.2 L (35.3-44.9) % Plt Count 146 (140-400) K/mcL Neutrophils # 2.6 (1.6-8.9) K/mcL BMP 08/22/16 04:42 Sodium 143 Potassium 3.7 Chloride 104 Carbon Dioxide 31 H BUN 23 H Creatinine 0.96 Glucose 89 Calcium 9.9 - ABG Interpretation ABG results: PT/INR, D-dimer PT 11.9 Seconds (9.4-12.1) 08/21/16 15:31 Consult Discharge Plan - Plan Referrals: Ermelinda Sanchez MD [Primary Care Provider] -
--- NOTE | 2016-08-22 15:44 | Palliative - Consult Note ---
Date of Encounter: 08/22/16 Time of Encounter: 15:55 - Assessment and Plan (1) Generalized pain Current Visit: Yes Status: Acute Assessment and plan: Patient has acetaminophen ordered PRN. Has not utilized. continue and monitor (2) Failure to thrive Current Visit: Yes Status: Acute Assessment and plan: PT/OT consult ordered. Encourage po and assist with meals. REceiving ensure. Albumin 3.1 Monitor intake Qualifiers: Failure to thrive age range: in adult Qualified Code(s): R62.7 - Adult failure to thrive (3) Counseling regarding advanced care planning and goals of care Current Visit: Yes Status: Acute Assessment and plan: Familiar to our team from previous visit. Patient confused. Daughter has already left for the day. She will be back in am, and Palliative team will follow up. (4) Altered mental status Current Visit: Yes Status: Acute Qualifiers: Altered mental status type: unspecified Qualified Code(s): R41.82 - Altered mental status, unspecified Palliative-CN HPI - Data of Consult Consult date: 08/22/16 Requesting Physician: Meme Catalan CNP Primary Care Provider: Ermelinda Sanchez - Consult Narrative History of present illness: Ms. Stone is a 86 year old female with a recent hospital stay for c-diff infection and abd fluid collection requiring drainage, who was found to have altered mental status on Thursday by [facility] staff and was returned to the hospital. Patient currently is confused and no family is present. I spoke with daughter Mer via telephone, who stated that pt was doing well at [facility] and as far as family knew was eating well. She states she visits daily after work and feeds her dinner. [facility] staff called daughter and she desired pt be transferred to hospital for evaluation and treatment. Mer states that pt "perked up" after receiving IV fluids. CC: Meme Catalan CNP Past Med Surg Social Fam HX - Past Medical History Medical history: atrial fibrillation, cardiomyopathy, CHF, dementia, fibromyalgia, hyperlipidemia, hypertension, osteoporosis, other Psychiatric history: depression - Past Surgical History Surgical History: cataract (Bilateral), cholecystectomy, knee replacement (Right -sided), orthopedic, other (Right femur fracture repair), ureteral stent ( Surgery for renal calculi), pacemaker - Social History Smoking Status: Unknown if ever smoked Smokeless Tobacco Status: No Alcohol use: none Drug use: none - Family History Daughter Living Status: Still Living Hx Family Cardiac Disorders: Yes (HTN, HLD) Hx Family Respiratory Disorders: No Hx Family Cancer: No Hx Family GI Disorders: Yes (GERD) Hx Family Endocrine Disorder: No Hx Family Neuromuscular Disorders: No Hx Family Neurologic Disorders: No Hx Family HEENT Disorders: No Hx Family Autoimmune Disorders: No Son Hx Family Cardiac Disorders: Yes (Stroke) Hx Family Genitourinary Disorders: Yes (Dialysis) Father Living Status: Hx Family Cardiac Disorders: Yes ([place]) Medications and Allergies Acetaminophen [Acetaminophen ER] 650 mg PO Q4HR PRN 08/10/16 [History] Albuterol Neb [Proventil Neb] 2.5 mg Q4HR PRN 08/10/16 [History] Aspirin Enteric Coated [Aspirin EC] 325 mg PO DAILY 08/10/16 [History] Benzonatate [Tessalon] 100 mg PO TID PRN 08/10/16 [History] Cholecalciferol (Vitamin D3) [Vitamin D3] 1,000 unit PO DAILY 08/10/16 [History] Furosemide [Lasix] 60 mg PO DAILY 08/10/16 [History] GuaiFENesin/Dextromethorphan [Robitussin/Dm] 10 ml PO Q4HR PRN 08/10/16 [History ] Ipratropium/Albuterol Neb [Duoneb] 3 ml IH TID 08/10/16 [History] Loratadine [Allergy Relief] 10 mg PO DAILY 08/10/16 [History] Magnesium Hydroxide [Milk of Magnesia] 30 ml PO DAILY PRN 08/10/16 [History] Mirtazapine [Remeron] 15 mg PO HS 08/10/16 [History] Polyvinyl Alcohol [Artificial Tears] 2 drop BOTH EYES BID 08/10/16 [History] Potassium Chloride [Klor-Con 10] 10 meq PO DAILY 08/10/16 [History] Sennosides/Docusate Sodium [Senna-S Tablet] 1 tab PO Q12H PRN 08/10/16 [History] Simvastatin [Zocor] 40 mg PO HS 08/10/16 [History] Trazodone HCl 25 mg PO HS PRN 08/10/16 [History] Vancomycin Oral Soln [Vancocin] 125 mg PO QID 8 Days 08/14/16 [Rx] Melatonin 2 mg PO HS 08/21/16 [History] Multivitamin-Min/Iron/FA/Vit K [Multi-Day Plus Minerals Tablet] 1 each PO DAILY 08/21/16 [History] Nut Tx, Lact-Reduced, Iron [Boost Vhc] 60 ml PO QID 08/21/16 [History] Oxygen 2 l NS AD 08/21/16 [History] Sertraline [Zoloft] 25 mg PO DAILY 08/21/16 [History] Tramadol HCl [Ultram] 50 mg PO BID 08/21/16 [History] Tramadol HCl [Ultram] 50 mg PO Q12H PRN 08/21/16 [History] Vancomycin [Vancocin] 750 mg IV DAILY 08/21/16 [History] Allergies acetaminophen [From Percocet] Allergy (Verified 08/09/16 18:31) See Comments adhesive tape Allergy (Verified 08/09/16 18:31) See Comments cephalexin [From Keflex] Allergy (Verified 08/09/16 18:31) See Comments lisinopril Allergy (Verified 08/09/16 18:31) Redness of Skin Oxycodone [From Percocet] Allergy (Verified 08/09/16 18:31) See Comments Penicillins Allergy (Verified 08/09/16 18:31) See Comments ROS unobtainable: due to mental status Palliative Care-Exam - Constitutional Vitals: Temp Pulse Resp BP Pulse Ox 98.0 F 60 18 108/54 98 08/22/16 12:27 08/22/16 12:27 08/22/16 12:27 08/22/16 12:27 08/22/16 12:27 General appearance: Present: no acute distress - Head Head Exam: Present: normal inspection, normocephalic - Eye Eye exam: Present: normal appearance, PERRL - Respiratory Respiratory exam: Present: decreased breath sounds, CTAB Additional comments: shallow inspiratory effort - Cardiovascular Cardiovascular exam: Present: +S1, +S2 - GI/Abdominal Exam GI/Abdominal exam: Present: normal bowel sounds, soft additional comments: JORI drain to lower left abd with small amount bloody drainage. - Extremities Exam Extremities exam: Present: normal capillary refill, normal inspection - Neurological Exam Additional comments: Patient opens eyes and answers few yes/no questions. Follows simple commands. Oriented to name only at this time. - Skin Skin exam: Present: dry, pallor, warm Internal Medicine - CN: Reslt - Labs CBC & Chem 7: 08/22/16 04:42 08/22/16 04:42 Labs: Short CBC 08/22/16 Range/Units 04:42 WBC 4.0 L (4.3-11.1) K/mcL Hgb 9.8 L (11.5-15.4) g/dL Hct 30.2 L (35.3-44.9) % Plt Count 146 (140-400) K/mcL Neutrophils # 2.6 (1.6-8.9) K/mcL BMP 08/22/16 04:42 Sodium 143 Potassium 3.7 Chloride 104 Carbon Dioxide 31 H BUN 23 H Creatinine 0.96 Glucose 89 Calcium 9.9 - ABG Interpretation ABG results: PT/INR, D-dimer PT 11.9 Seconds (9.4-12.1) 08/21/16 15:31 Consult Discharge Plan - Plan Referrals: Ermelinda Sanchez MD [Primary Care Provider] - Palliative Quality Palliative Quality: Screen for Code Status: Yes, Screen for Goals of Care: Yes, Screen for Pain: Yes, If Pain Regimen Started, Initiate Bowel Regimen: Yes, Screen for Nausea/Vomitting: Yes Code Status: 08/21/16 20:28 Resuscitation Status: Active [RES] Routine Comment: Resuscitation Status: [id number]
--- NOTE | 2016-08-22 17:30 | Electrocardiograph Report ---
[place] [id number] Test Date: 2016-08-21 Pat Name: Marilu Stone Department: 102 Room: 3B Gender: F Property Management Coordinator: Silvia : 1930 Requested By: Nader Amanda Order Number: [id number] Reading MD: Shea Lock Measurements Intervals [place] Rate: 60 P: [place]: 0 QRS: 197 QRSD: 160 T: 40 QT: 468 QTc: 469 Interpretive Statements ELECTRONIC VENTRICULAR PACEMAKER ABNORMAL RHYTHM ECG Electronically Signed On 08-22-2016 17:28:48 EDT by Shea Lock
[2016-08-22] MEDS: Melatonin 3 MG TABLET PO SCH (21:28)
[2016-08-23] MEDS: *HR* Heparin 5,000 UNIT/ML VIAL SQ SCH ×2 (05:36→17:20)
--- NOTE | 2016-08-23 08:05 | Internal Med Progress Note ---
Date of Encounter: 08/23/16 Time of Encounter: 08:02 - Assessment and plan (1) Bacteremia Current Visit: Yes Status: Acute Assessment and plan: culture from 08/10 showed staph hominins and epidermidis both sensitive to IV vancomycin continue IV vanco through PICC Was supposed to compete IV vancomycin on Aug 25 ( 14 days after the last negative blood culture (08/11/16)) (2) C. difficile colitis Current Visit: No Status: Acute Assessment and plan: continue oral vancomycin (3) Dehydration Current Visit: No Status: Acute Assessment and plan: resolve with IVF (4) Altered mental status Current Visit: No Status: Acute Assessment and plan: likely secondary to deconditioning and dementia Qualifiers: Altered mental status type: transient alteration of awareness Qualified Code(s): R40.4 - Transient alteration of awareness (5) CHF (congestive heart failure) Current Visit: No Status: Chronic Assessment and plan: stable, no exacerbation Qualifiers: Congestive heart failure type: diastolic Congestive heart failure chronicity: chronic Qualified Code(s): I50.32 - Chronic diastolic (congestive ) heart failure (6) S/P PICC central line placement Current Visit: Yes Status: Acute (7) Intra-abdominal fluid collection Current Visit: Yes Status: Acute Assessment and plan: drain in place, CT scan showed reduction of the intrabdominal collection (8) Weakness Current Visit: Yes Status: Acute Assessment and plan: due to severe decontintioning spoke with daughter regarding her poor chances of returning to her baseline. Palliative care consulted - Subjective Interval history: Still lethargic, she is able to tell me her name, oriented in person only, appears comfortable, unable to complete ROS - Constitutional Vitals: Temp Pulse Resp BP Pulse Ox 98.2 F 60 16 108/61 97 08/23/16 07:52 08/23/16 07:52 08/23/16 07:52 08/23/16 07:52 08/23/16 07:52 General appearance: Present: A&O X 1 Exam: General appearance: Present: A&O X 1 - Head Head exam: Present: atraumatic, normocephalic - Eye Eye exam: Present: PERRL, conjuntiva pink, sclera anicteric Pupils: Present: PERRL - Neck Neck exam general surgery: Present: supple, trachea midline. Absent: lymphadenopathy - Respiratory Respiratory exam: Present: decreased breath sounds, CTAB. Absent: accessory muscle use, rales, rhonchi, wheezes - Cardiovascular Cardiovascular exam: Present: RRR, +S1, +S2. Absent: diastolic murmur, gallop, rubs, systolic murmur - GI/Abdominal GI/Abdominal exam: Present: distended (drain on the left lower quadrant), normal bowel sounds, soft, no peritoneal signs. Absent: tenderness - Extremities Exam Extremities exam: Present: warm, radial pulses palpable and symetrical. Absent : calf tenderness, cyanotic, pedal edema - Neurological Exam Neurological exam: Present: CN II-XII intact, no focal deficits. Absent: oriented X3, pronater drift, facial droop, speech deficit Additional comments: severe weakness in all extremities due to severe deconditioning - Skin Skin exam: Present: dry, intact Internal Medicine: Result - Labs CBC & Chem 7: 08/22/16 04:42 08/22/16 04:42 - ABG Interpretation ABG results: PT/INR, D-dimer PT 11.9 Seconds (9.4-12.1) 08/21/16 15:31 Consult Discharge Plan - Plan Referrals: Ermelinda Sanchez MD [Primary Care Provider] -
--- NOTE | 2016-08-23 08:46 | Palliative Progress Note ---
Date of Encounter: 08/23/16 Time of Encounter: 08:30 - Assessment and plan (1) C. difficile colitis Current Visit: No Status: Acute Assessment and plan: The patient continues on vancomycin. Plan per hospitalist team (2) Sepsis Current Visit: No Status: Acute Assessment and plan: Blood cultures show staph hominis and epididymidis and IV vancomycin patient is still on IV vancomycin and will continue this at least through August 25. Qualifiers: Sepsis type: sepsis due to unspecified organism Qualified Code(s): A41.9 - Sepsis, unspecified organism (3) Goals of care, counseling/discussion Current Visit: No Status: Acute Assessment and plan: Patient is DNR CCA, DNI as was established during last hospitalization. I plan to meet with family today in time hopefully between 8:30 and 9:00. Of note at 0830 hrs. the family had not shown up yet. We will check again in 0 900. Long discussion with daughter and family regarding goals of care. I or to the fall that occurred in February of this year the patient had been doing well at home. That fall and her trial in rehabilitation she has had multiple infections that have each taken more and more out of her. She is currently still under treatment for one of these infections. Her discussion with the family during the last hospitalization as well as this when they wish to try to get her over this illness and then see how she does. We did discuss hospice at length. Understand where it fits in the process and at this time are not ready to availed himself of it area did a patient's and family's goal of care is to return to her house manner, to continue rehabilitation for as long as she can get it and then perhaps to return home. Family understands, that the patient will probably never get back to a level that she was at prior to her fall, not even get anywhere close to it. They would like for her to at least be able to get around a little bit at home. CODE STATUS is established goals of care are established palliative care will sign off. Please repeat consult if we can help in any way. (4) Pain Current Visit: No Status: Acute Assessment and plan: Appears to be under good control at this time no changes anticipated. (5) Altered mental status Current Visit: Yes Status: Acute Assessment and plan: Multifactorial in nature with infection, dementia and overall deconditioning contributing. Qualifiers: Altered mental status type: unspecified Qualified Code(s): R41.82 - Altered mental status, unspecified - Time Spent With Patient Total time spent is greater than 50% in coordination of care (as documented) at patient's floor/unit and/or counseling patient: - Subjective Interval history: The patient has no plaints of this morning. sHe is poorly oriented but able to tell me her name. - Constitutional Vitals: Abnormal lab results WBC 4.0 K/mcL (4.3-11.1) L 08/22/16 04:42 RBC 3.04 M/mcL (3.82-4.97) L 08/22/16 04:42 Hgb 9.8 g/dL (11.5-15.4) L 08/22/16 04:42 Hct 30.2 % (35.3-44.9) L 08/22/16 04:42 MPV 9.1 fL (9.4-12.4) L 08/22/16 04:42 Carbon Dioxide 31 mEq/L (19-29) H 08/22/16 04:42 BUN 23 mg/dL (7-20) H 08/22/16 04:42 Est GFR (Non-Af Amer) 55 (> 60) L 08/22/16 04:42 Albumin 3.1 g/dL (3.5-5.0) L 08/21/16 15:31 Globulin 3.7 g/dL (2.4-3.5) H 08/21/16 15:31 Albumin/Globulin Ratio 0.8 (1.1-2.2) L 08/21/16 15:31 Urine Blood Large (Negative) H 08/21/16 15:43 Urine Microscopic RBC TNTC per hpf (0-3) H 08/21/16 15:43 Vancomycin Trough 28.5 mcg/mL (10-20) H* 08/23/16 04:11 General appearance: Present: no acute distress - Head Head exam: Present: atraumatic, normal inspection - Eye Eye exam: Present: normal appearance, PERRL - ENT ENT exam: Present: mucous membranes moist (No signs of any thrush) - Neck Neck exam: Present: normal inspection - Respiratory Respiratory exam: Present: decreased breath sounds - Cardiovascular Cardiovascular exam: Present: RRR - GI/Abdominal GI/Abdominal exam: Present: normal bowel sounds, soft. Absent: tenderness ( John-Coello on left side) - Extremities Exam Extremities exam: Present: normal inspection. Absent: tenderness - Neurological Exam Neurological exam: Present: altered - Psychiatric Psychiatric exam: Absent: agitated, anxious - Skin Skin exam: Present: dry, warm Palliative Quality Palliative Quality: Screen for Code Status: Yes, Screen for Goals of Care: Yes, Screen for Pain: Yes, If Pain Regimen Started, Initiate Bowel Regimen: Yes, Screen for Nausea/Vomitting: Yes Code Status: 08/21/16 20:28 Resuscitation Status: Active [RES] Routine Comment: Resuscitation Status: [id number] - Labs CBC & Chem 7: 08/22/16 04:42 08/22/16 04:42 Labs: Laboratory Results - last 24 hr 08/23/16 04:11 Vancomycin Trough 28.5 H* - ABG Interpretation ABG results: PT/INR, D-dimer PT 11.9 Seconds (9.4-12.1) 08/21/16 15:31 Consult Discharge Plan - Plan Referrals: Ermelinda Sanchez MD [Primary Care Provider] -
[2016-08-23] MEDS: Aspirin Enteric Coated 325 MG Tablet PO SCH (09:42)
[2016-08-23] MEDS: Pantoprazole 40 MG VIAL IVP SCH (09:42)
[2016-08-23] MEDS: Furosemide 20 MG TABLET PO SCH (09:42)
[2016-08-23] MEDS: Vancomycin Oral Soln 250 MG/2.5 ML UDC PO SCH ×4 (09:43→20:36)
[2016-08-23] MEDS: Ipratropium/Albuterol Neb 3 ML IH SCH ×3 (11:22→23:00)
[2016-08-23] MEDS: Artificial Tears SOLN 15 ML BOTTLE BOTH EYES SCH ×2 (12:48→20:35)
[2016-08-23] MEDS: Melatonin 3 MG TABLET PO SCH (20:35)
[2016-08-24] MEDS: *HR* Heparin 5,000 UNIT/ML VIAL SQ SCH (06:21)
[2016-08-24 07:10] VITALS: BP 157/57
--- NOTE | 2016-08-24 07:31 | Discharge Summary ---
Date of Encounter: 08/24/16 Time of Encounter: 07:29 - Discharge Diagnosis (1) Bacteremia Priority: Primary Status: Acute Comments: culture from 08/10 showed Staphylococcus hominins and epidermidis both sensitive to IV vancomycin continue IV vanco through PICC until Aug 10 ( 14 days after the last negative blood culture (08/11/16)) (2) C. difficile colitis Priority: Secondary Status: Acute Comments: Discontinue oral vancomycin as the patient is having formed stools and has completed her treatment with this medication (3) Dehydration Priority: Secondary Status: Acute (4) Altered mental status Priority: Secondary Status: Acute Qualifiers: Altered mental status type: transient alteration of awareness Qualified Code(s): R40.4 - Transient alteration of awareness (5) CHF (congestive heart failure) Priority: Secondary Status: Chronic Qualifiers: Congestive heart failure type: diastolic Congestive heart failure chronicity: chronic Qualified Code(s): I50.32 - Chronic diastolic (congestive ) heart failure (6) S/P PICC central line placement Priority: Secondary Status: Acute (7) Intra-abdominal fluid collection Priority: Secondary Status: Acute Comments: drain in place, CT scan showed reduction of the intrabdominal collection (8) Weakness Priority: Secondary Status: Acute - Discharge Medications Prescriptions: Vancomycin [Vancocin] 750 mg IV DAILY #1 vial Home Medications: Acetaminophen [Acetaminophen ER] 650 mg PO Q4HR PRN 08/10/16 [History] Albuterol Neb [Proventil Neb] 2.5 mg Q4HR PRN 08/10/16 [History] Aspirin Enteric Coated [Aspirin EC] 325 mg PO DAILY 08/10/16 [History] Benzonatate [Tessalon] 100 mg PO TID PRN 08/10/16 [History] Cholecalciferol (Vitamin D3) [Vitamin D3] 1,000 unit PO DAILY 08/10/16 [History] Furosemide [Lasix] 60 mg PO DAILY 08/10/16 [History] GuaiFENesin/Dextromethorphan [Robitussin/Dm] 10 ml PO Q4HR PRN 08/10/16 [History ] Ipratropium/Albuterol Neb [Duoneb] 3 ml IH TID 08/10/16 [History] Loratadine [Allergy Relief] 10 mg PO DAILY 08/10/16 [History] Magnesium Hydroxide [Milk of Magnesia] 30 ml PO DAILY PRN 08/10/16 [History] Mirtazapine [Remeron] 15 mg PO HS 08/10/16 [History] Polyvinyl Alcohol [Artificial Tears] 2 drop BOTH EYES BID 08/10/16 [History] Potassium Chloride [Klor-Con 10] 10 meq PO DAILY 08/10/16 [History] Sennosides/Docusate Sodium [Senna-S Tablet] 1 tab PO Q12H PRN 08/10/16 [History] Simvastatin [Zocor] 40 mg PO HS 08/10/16 [History] Trazodone HCl 25 mg PO HS PRN 08/10/16 [History] Melatonin 2 mg PO HS 08/21/16 [History] Multivitamin-Min/Iron/FA/Vit K [Multi-Day Plus Minerals Tablet] 1 each PO DAILY 08/21/16 [History] Nut Tx, Lact-Reduced, Iron [Boost Vhc] 60 ml PO QID 08/21/16 [History] Oxygen 2 l NS AD 08/21/16 [History] Sertraline [Zoloft] 25 mg PO DAILY 08/21/16 [History] Tramadol HCl [Ultram] 50 mg PO BID 08/21/16 [History] Tramadol HCl [Ultram] 50 mg PO Q12H PRN 08/21/16 [History] Vancomycin [Vancocin] 750 mg IV DAILY #1 vial 08/24/16 [Rx] Allergies/Adverse Reactions: Allergies acetaminophen [From Percocet] Allergy (Verified 08/09/16 18:31) See Comments adhesive tape Allergy (Verified 08/09/16 18:31) See Comments cephalexin [From Keflex] Allergy (Verified 08/09/16 18:31) See Comments lisinopril Allergy (Verified 08/09/16 18:31) Redness of Skin Oxycodone [From Percocet] Allergy (Verified 08/09/16 18:31) See Comments Penicillins Allergy (Verified 08/09/16 18:31) See Comments Date of admission: 08/21/16 18:43 Primary care physician: Ermelinda Sanchez Consults: 08/21/16 20:59 Consult to [place] [employer] [CONS] Routine Reason for SW Consult: Patient resides at [facility]. 08/22/16 14:22 Consult to Palliative Care [CONS] Routine Comment: Consulting Provider: [facility] [place] Reason for Consult: deconditioning Call Completed: No 08/22/16 15:49 Consult to Physical Therapy [CONS] Routine Comment: Evaluate, develop and implement POC Reason for Consult: From ecf - deconditioned, failure to thrive 08/22/16 15:50 Consult to Occupational Therapy [CONS] Routine Comment: Evaluate, develop and implement POC Reason for Consult: From ECF, deconditioned, FTT - Patient Status Disposition: Transfer SNF Condition: Fair Overall status at discharge: patient is progressing back to baseline - Discharge Instructions Follow Up With: Ermelinda Sanchez MD [Primary Care Provider] - Additional Instructions: Follow-up with primary care physician within the next 7 days. Complete last dose of IV vancomycin on 08/25/2016. Stop oral vancomycin. Follow-up with surgery to remove drain. - Diet and Activity Activity: as per physical therapy Diet: advance to your usual diet Hospital course: Ms. Stone is a 86 year old female with a past medical history of of atrial fibrillation not on anticoagulation, cardiomyopathy, dementia, fibromyalgia, hyperlipidemia, hypertension, presented to [facility] from a nursing facility with altered mental status. The patient was receiving oral vancomycin and IV vancomycin for treatment of C. difficile , Staphylococcus bacteremia and intra-abdominal abscess. She was poorly responsive, not swallowing, unable to identify where she was or person place or time. In the emergency department she had a period of lucency where she was awake and interactive but upon evaluation this evening she stared with poor responses to questions. She was able to say she was at [place] was unsure of the month, time, her name, or anybody else including family members in the room. The patient was admitted to the hospital and continued on both oral and IV vancomycin. She is very deconditioned and gets tired very easily. Family understands that she will not go back to her baseline. Palliative care was consulted. Patient will return back to her nursing care facility to continue her plan of care She needs to complete IV vancomycin on 08/25/2016. The patient's oral vancomycin will be discontinued as she is having formed stools and she has completed treatment with it. Patient CT scan showed decrease in size of the prior noticed intra-abdominal abscess her drain will be removed by Dr. Da Silva as an outpatient. - Time Spent with Patient Total time spent providing and/or coordinating discharge services: Greater than 30 minutes (40 min) - Constitutional Vitals: Temp Pulse Resp BP Pulse Ox 98.1 F 75 14 157/57 94 08/24/16 07:09 08/24/16 07:09 08/24/16 07:09 08/24/16 07:09 08/24/16 07:09 General appearance: Present: A&O X 1 Exam: General appearance: Present: A&O X 1 - Head Head exam: Present: atraumatic, normocephalic - Eye Eye exam: Present: PERRL, conjuntiva pink, sclera anicteric Pupils: Present: PERRL - Neck Neck exam general surgery: Present: supple, trachea midline. Absent: lymphadenopathy - Respiratory Respiratory exam: Present: decreased breath sounds, CTAB. Absent: accessory muscle use, rales, rhonchi, wheezes - Cardiovascular Cardiovascular exam: Present: RRR, +S1, +S2. Absent: diastolic murmur, gallop, rubs, systolic murmur - GI/Abdominal GI/Abdominal exam: Present: distended (drain on the left lower quadrant), normal bowel sounds, soft, no peritoneal signs. Absent: tenderness - Extremities Exam Extremities exam: Present: warm, radial pulses palpable and symetrical. Absent : calf tenderness, cyanotic, pedal edema - Neurological Exam Neurological exam: Present: CN II-XII intact, no focal deficits. Absent: oriented X3, pronater drift, facial droop, speech deficit Additional comments: severe weakness in all extremities due to severe deconditioning - Skin Skin exam: Present: dry, intact
--- NOTE | 2016-08-24 07:47 | Physician Discharge Referral ---
ExtendedCare Referral Info Provider in Charge after Transfer: PCP Institutional Level of Care: Skilled - Diagnosis (1) Bacteremia Status: Acute (2) C. difficile colitis Status: Acute (3) Dehydration Status: Acute (4) Altered mental status Status: Acute (5) CHF (congestive heart failure) Status: Chronic (6) S/P PICC central line placement Status: Acute (7) Intra-abdominal fluid collection Status: Acute (8) Weakness Status: Acute - Transfer Medications Prescriptions: Vancomycin [Vancocin] 750 mg IV DAILY #1 vial Home Medications: Acetaminophen [Acetaminophen ER] 650 mg PO Q4HR PRN 08/10/16 [History] Albuterol Neb [Proventil Neb] 2.5 mg Q4HR PRN 08/10/16 [History] Aspirin Enteric Coated [Aspirin EC] 325 mg PO DAILY 08/10/16 [History] Benzonatate [Tessalon] 100 mg PO TID PRN 08/10/16 [History] Cholecalciferol (Vitamin D3) [Vitamin D3] 1,000 unit PO DAILY 08/10/16 [History] Furosemide [Lasix] 60 mg PO DAILY 08/10/16 [History] GuaiFENesin/Dextromethorphan [Robitussin/Dm] 10 ml PO Q4HR PRN 08/10/16 [History ] Ipratropium/Albuterol Neb [Duoneb] 3 ml IH TID 08/10/16 [History] Loratadine [Allergy Relief] 10 mg PO DAILY 08/10/16 [History] Magnesium Hydroxide [Milk of Magnesia] 30 ml PO DAILY PRN 08/10/16 [History] Mirtazapine [Remeron] 15 mg PO HS 08/10/16 [History] Polyvinyl Alcohol [Artificial Tears] 2 drop BOTH EYES BID 08/10/16 [History] Potassium Chloride [Klor-Con 10] 10 meq PO DAILY 08/10/16 [History] Sennosides/Docusate Sodium [Senna-S Tablet] 1 tab PO Q12H PRN 08/10/16 [History] Simvastatin [Zocor] 40 mg PO HS 08/10/16 [History] Trazodone HCl 25 mg PO HS PRN 08/10/16 [History] Melatonin 2 mg PO HS 08/21/16 [History] Multivitamin-Min/Iron/FA/Vit K [Multi-Day Plus Minerals Tablet] 1 each PO DAILY 08/21/16 [History] Nut Tx, Lact-Reduced, Iron [Boost Vhc] 60 ml PO QID 08/21/16 [History] Oxygen 2 l NS AD 08/21/16 [History] Sertraline [Zoloft] 25 mg PO DAILY 08/21/16 [History] Tramadol HCl [Ultram] 50 mg PO BID 08/21/16 [History] Tramadol HCl [Ultram] 50 mg PO Q12H PRN 08/21/16 [History] Vancomycin [Vancocin] 750 mg IV DAILY #1 vial 08/24/16 [Rx] Allergies/Adverse Reactions: Allergies acetaminophen [From Percocet] Allergy (Verified 08/09/16 18:31) See Comments adhesive tape Allergy (Verified 08/09/16 18:31) See Comments cephalexin [From Keflex] Allergy (Verified 08/09/16 18:31) See Comments lisinopril Allergy (Verified 08/09/16 18:31) Redness of Skin Oxycodone [From Percocet] Allergy (Verified 08/09/16 18:31) See Comments Penicillins Allergy (Verified 08/09/16 18:31) See Comments - Respiratory Orders Smoking Cessation: Smoking cessation has been advised. For more information, call the [employer] Quit Line at 5-100-TGXINOW. - Advance Directives Code Status: DNR-Arrest/Don't Intubate - Treatments List/Other: Follow-up with primary care physician within the next 7 days. Complete last dose of IV vancomycin on 08/25/2016. Stop oral vancomycin. Follow-up with surgery to remove drain. - Diet Orders No Added Salt (ARIELLA) CERTIFICATION: I certify that the transfer of the above named patient to an Extended Care Facility is necessary for the continuing treatment of the diagnosis listed. The above information is true and accurate reflection of patient's current condition. Confidential - Redisclosure prohibited without a patient's written consent.
[2016-08-24 08:46] LABS: Hematocrit 28.9 % (35.3-44.9); Hemoglobin 9.3 g/dL (11.5-15.4); Immature Platelets 1.7 % (1.1-6.1); Mean Corpuscular HGB Conc 32.2 g/dL (31.6-35.5); Mean Corpuscular Hemoglobin 31.7 pg (28.0-33.3); Mean Corpuscular Volume 98.6 fL (83.0-100.0); Mean Platelet Volume 9.5 fL (9.4-12.4); Red Blood Count 2.93 M/mcL (3.82-4.97); Red Cell Distribution Width 13.3 % (11.5-14.5)
[2016-08-24 08:59] LABS: BUN/Creatinine Ratio 23 (6-26); Blood Urea Nitrogen 23 mg/dL (7-20); Calcium 9.6 mg/dL (8.6-10.8); Carbon Dioxide 31 mEq/L (19-29); Chloride 100 mEq/L (98-109); Glucose 93 mg/dL (70-99); Osmolality,Calculated 291 (280-300); Potassium 4.1 mEq/L (3.5-4.5); Sodium 139 mEq/L (136-145); eGFR For African Americans > 60 (> 60); eGFR For Non-African Americans 53 (> 60)
[2016-08-24] MEDS: Artificial Tears SOLN 15 ML BOTTLE BOTH EYES SCH (09:13)
[2016-08-24] MEDS: Furosemide 20 MG TABLET PO SCH (09:13)
[2016-08-24] MEDS: Aspirin Enteric Coated 325 MG Tablet PO SCH (09:14)
[2016-08-24] MEDS: Pantoprazole 40 MG VIAL IVP SCH (09:14)
[2016-08-24] MEDS: Vancomycin Oral Soln 250 MG/2.5 ML UDC PO SCH (09:14)
[2016-08-24] MEDS: Ipratropium/Albuterol Neb 3 ML IH SCH (10:58)
[2016-08-24] MEDS ORDERED: Aminoglycoside Consult 1 EACH MC ONE (12:05)
== END 2016-08-24 12:06 ==
LOC: 3BNU 14:30 → EMEROO 14:30 → SUATTDRO 18:43 → 3BNU 19:48
PROVIDERS: ADMIT Family Medicine; ATTEND Internal Medicine